=== PATIENT | female | born 1950 | race African-American/Black ===

== ENCOUNTER 2018-08-05 19:05 | Inpatient (IN) | payer MEDICARE, OTHER ==
[2018-08-05 19:56] LABS: % BASOPHILS 0.4 % (0.0-2.0); % EOSINOPHILS 1.1 % (0.0-5.0); % LYMPHOCYTES 21.2 % (20.0-50.0); % MONOCYTES 4.3 % (2.0-10.0); EOSINOPHILE ABSOLUTE 0.1 Th/cmm (0.1-0.4); HEMATOCRIT 40.3 % (41.0-60); HEMOGLOBIN 13.4 gm/dL (12-16); LYMPHOCYTE ABSOLUTE 1.4 Th/cmm (1.5-3.0); MEAN CELL VOLUME 89.9 fl (81-100); MEAN CORPUSCULAR HEMOGLOBIN 29.8 pg (27.0-31.0); MEAN CORPUSCULAR HGB CONC 33.2 pg (28.0-36.0); MEAN PLATELET VOLUME 7.5 fl; MONOCYTE ABSOLUTE 0.3 Th/cmm (0.3-1.0); NEUTROPHILE ABSOLUTE 4.8 Th/cmm (1.8-8.0); PLATELET COUNT 260 Th/cmm (150-400); RED BLOOD COUNT 4.48 Mil/cmm (3.80-5.20); RED CELL DISTRIBUTION WIDTH 13.3 % (11.5-20.0); WHITE BLOOD COUNT 6.6 Th/cmm (4.8-10.8)
[2018-08-05 20:17] LABS: ACETAMINOPHEN < 10.0 ug/mL (10.0-30.0); ALB/GLOB RATIO 1.2 (1.0-1.8); ALBUMIN 3.6 gm/dL (3.7-5.3); ALKALINE PHOSPHATASE 70 U/L (34-104); ANION GAP 12.3 (7.0-16.0); BILIRUBIN,TOTAL 0.3 mg/dL (0.3-1.0); BUN - UREA NITROGEN 18 mg/dL (7-25); CALCIUM SERUM 9.2 mg/dL (8.6-10.3); CARBON DIOXIDE 22.3 mEq/L (21.0-31.0); CHLORIDE 109 mEq/L (98-107); CHOLESTEROL 232 mg/dL (<200); CREATININE - SERUM 0.9 mg/dL (0.6-1.2); GFR AFRICAN-AMERICAN > 60.0 ml/min (>90); GFR NON AFRICAN-AMERICAN > 60.0 ml/min; GLUCOSE 119 mg/dL (70-105); HDL -HIGH DENSITY LIPOPROTEIN 41 mg/dL (23-92); POTASSIUM SERUM 3.6 mEq/L (3.5-5.1); SGOT 12 U/L (13-39); SGPT/ALT 13 U/L (7-52); SODIUM SERUM 140 mEq/L (136-145); TOTAL PROTEIN,SERUM 6.7 gm/dL (6.0-8.3); TRIGLYCERIDES 126 mg/dL (<150)
[2018-08-05 20:19] LABS: SALICYLATES (ASPIRIN) < 25.0 mg/L (30.0-100.0)
[2018-08-05] MEDS ORDERED: Magnesium Hydroxide (MOM) 30 mL UDC PO PRN (22:16)
[2018-08-05] MEDS ORDERED: Maalox 30 mL Cup PO PRN (22:16)
[2018-08-05] MEDS ORDERED: Fleet Enema 135 mL RC PRN (22:49)
[2018-08-06 00:11] VITALS: BP 150/89
[2018-08-06] MEDS: Aspirin 81mg Chewable Tab PO SCH (08:35)
[2018-08-06] MEDS: Multivitamin Tab PO SCH (08:35)
[2018-08-06] MEDS: Dextromethorphan/Quinidine 20mg/10mg Cap PO SCH (08:38)
--- NOTE | 2018-08-06 11:53 | ER Physician Documentation ---
DATE OF SERVICE: 08/05/2018 HISTORY OF PRESENT ILLNESS: This 67-year-old patient was brought into the Emergency Room to [facility] via paramedics because of the report of severe agitation and aggressive behavior for the past 2 days. This patient has a psychiatric history. There is no report of trauma, headaches, neck pain, chest pain, shortness of breath, abdominal pain, weakness or dizziness or paresthesias. No suicidal ideations reported. PAST MEDICAL HISTORY: Per nurse's notes. MEDICATIONS: Per nurse's notes. ALLERGIES: Per nurse's notes. REVIEW OF SYSTEMS: Otherwise, noncontributory. PHYSICAL EXAMINATION: GENERAL: Revealed the patient in no acute distress, alert and oriented x 3. VITAL SIGNS: Afebrile. Vital signs stable. HEENT: Negative. NECK: Supple, no meningeal signs. CARDIOVASCULAR: Regular rate and rhythm. LUNGS: Clear. ABDOMEN: Soft, nontender, normal active bowel sounds, no pulsatile mass. EXTREMITIES: No edema, clubbing or cyanosis. NEUROLOGIC: No focal signs. PSYCHIATRIC: Mental status exam revealed the patient is in no acute distress. Positive psychomotor agitation. Mood and affect labile. No suicidal ideations. MEDICAL DECISION MAKING: Lab tests were performed. EKG performed. The patient was medically cleared and thus the patient was admitted to the psychiatric unit. DIAGNOSES: Agitation, psychosis, bipolar disorder. JOB# [id number]
--- NOTE | 2018-08-06 19:09 | History & Physical ---
ADMIT DATE: 08/06/2018 CHIEF COMPLAINT: Agitation. HISTORY OF PRESENT ILLNESS: This is a 67-year-old male who is a resident of [facility], admitted to the Geropsych Unit due to 1-day history of agitation. PAST MEDICAL HISTORY: Psychosis, constipation, hypertension, dementia, hypercholesterolemia. PAST SURGICAL HISTORY: Unknown. ALLERGIES: No drug allergies. SOCIAL HISTORY: The patient is [facility] resident requiring 24-hour nursing care. REVIEW OF SYSTEMS: GENERAL: Denies any fever and chills. CARDIOVASCULAR: Denies chest pain. RESPIRATORY: Shortness of breath. GASTROINTESTINAL: Denies nausea, vomiting, abdominal pain. GENITOURINARY: Denies increased frequency or dysuria. NEUROLOGIC: No headache, seizure, or syncope. All systems reviewed and negative. PHYSICAL EXAMINATION: GENERAL: Elderly male. NEUROLOGIC: Awake, alert with confusion, no apparent distress. VITAL SIGNS: Temperature 98.5, heart rate 77, blood pressure 163/92, respiration 18, O2 95%. HEENT: Head normocephalic, atraumatic. NECK: Supple. No mass. LUNGS: Clear bilaterally. HEART: Regular rhythm. ABDOMEN: Soft, nontender. LABORATORY DATA: WBC 6.6, H and H were 13.4 and 40.3, platelet of 260. Sodium 140, potassium 3.6, chloride 109, BUN 18, creatinine 0.9. ASSESSMENT: Agitation, hypercholesterolemia, dementia, and history of constipation. PLAN: Continue patient's [facility] medications. We will adjust the patient's blood pressure medications accordingly. Fall precautions will be initiated. We will continue to monitor this patient. JOB# [id number]
--- NOTE | 2018-08-06 20:56 | Psychiatric Evaluation ---
DATE OF SERVICE: 08/06/2018 IDENTIFYING DATA: The patient is a 67-year-old -[place] woman, resident of [facility]. Information obtained by directly interviewing the patient as well as reviewing the admission papers. JUSTIFICATION FOR HOSPITALIZATION: The patient is admitted here for agitation and paranoia. CHIEF COMPLAINT: "I am okay, leave me alone." HISTORY OF PRESENT ILLNESS: This is the first psychiatric hospitalization to [facility] for this patient who is reported to have been a resident of [facility] in [place]. The patient is reported to have been getting easily agitated and has been getting frustrated and hence the patient has been referred over here for further care. Chart is reviewed. The patient is interviewed. During the interview, the patient is getting easily irritable and is stating that there is nothing wrong with her, I should leave her alone. Staff are reporting that the patient so far has been lying down in the bed and has not been willing to comply with the medication. Review of the chart indicated that the patient has been on Aricept 10 mg once a day and Depakene 500 mg twice a day and the patient is also reported to be on the Nuedexta, metoprolol, Namenda, and the patient is getting the Risperdal 1 mg twice a day for her psychosis. Even with all the medications, the patient is reported to have been getting easily upset. PAST PSYCHIATRIC HISTORY: Details are not known. MEDICAL HISTORY: Physical examination is requested to be done by Dr. Arreola. SUBSTANCE ABUSE HISTORY: None. PHYSICAL OR SEXUAL ABUSE HISTORY: Details are not known. MENTAL STATUS EXAMINATION: The patient is a 67-year-old woman looking her stated age, superficially cooperative. Eye contact is poor. Mood is noted to be irritable. Affect is constricted. Insight and judgment at this time are noted to be still impaired. Impulse control is noted to be limited. The patient has been having a difficult time to cope with the stress, continues to be paranoid. The patient is very dysphoric. IMMEDIATE TREATMENT PLAN: In view of the psychosis, the patient's Risperdal is going to be continued, so also the valproic acid and the patient is going to be closely monitored. Once stabilized, the patient is going to be discharged to the facility for followup on outpatient basis. JOB# [id number]
[2018-08-06] MEDS ORDERED: Non-Formulary Item 1 EA (Melatonin [Melatonin] 5 MG) PO SCH (21:00)
[2018-08-07] MEDS: Aspirin 81mg Chewable Tab PO SCH ×2 (09:00→09:26)
[2018-08-07] MEDS: Dextromethorphan/Quinidine 20mg/10mg Cap PO SCH ×2 (09:00→09:27)
[2018-08-07] MEDS: Multivitamin Tab PO SCH (09:29)
--- NOTE | 2018-08-07 16:43 | Internal Medicine Prog Note ---
Internal Medicine Subjective - Subjective Service Date: 08/07/18 Patient seen and examined:: with staff, chart reviewed Patient is:: awake, talking, agitated, confused Patient Complaints of:: other (Hx of Dementia.) Per staff patient has:: no adverse event, no episodes of fall, agitated Internal Medicine Objective - Results Result Diagrams: 08/05/18 19:50 08/05/18 19:50 Recent Labs: Laboratory Last Values WBC 6.6 Th/cmm (4.8-10.8) 08/05/18 19:50 RBC 4.48 Mil/cmm (3.80-5.20) 08/05/18 19:50 Hgb 13.4 gm/dL (12-16) 08/05/18 19:50 Hct 40.3 % (41.0-60) L 08/05/18 19:50 MCV 89.9 fl (81-100) 08/05/18 19:50 MCH 29.8 pg (27.0-31.0) 08/05/18 19:50 MCHC Differential 33.2 pg (28.0-36.0) 08/05/18 19:50 RDW 13.3 % (11.5-20.0) 08/05/18 19:50 Plt Count 260 Th/cmm (150-400) 08/05/18 19:50 MPV 7.5 fl 08/05/18 19:50 Neutrophils % 73.0 % (40.0-80.0) 08/05/18 19:50 Lymphocytes % 21.2 % (20.0-50.0) 08/05/18 19:50 Monocytes % 4.3 % (2.0-10.0) 08/05/18 19:50 Eosinophils % 1.1 % (0.0-5.0) 08/05/18 19:50 Basophils % 0.4 % (0.0-2.0) 08/05/18 19:50 Sodium 140 mEq/L (136-145) 08/05/18 19:50 Potassium 3.6 mEq/L (3.5-5.1) 08/05/18 19:50 Chloride 109 mEq/L (98-107) H 08/05/18 19:50 Carbon Dioxide 22.3 mEq/L (21.0-31.0) 08/05/18 19:50 Anion Gap 12.3 (7.0-16.0) 08/05/18 19:50 BUN 18 mg/dL (7-25) 08/05/18 19:50 Creatinine 0.9 mg/dL (0.6-1.2) 08/05/18 19:50 Est GFR ( Amer) > 60.0 ml/min (>90) 08/05/18 19:50 Est GFR (Non-Af Amer) > 60.0 ml/min 08/05/18 19:50 BUN/Creatinine Ratio 20.0 08/05/18 19:50 Glucose 119 mg/dL (70-105) H 08/05/18 19:50 Calcium 9.2 mg/dL (8.6-10.3) 08/05/18 19:50 Total Bilirubin 0.3 mg/dL (0.3-1.0) 08/05/18 19:50 AST 12 U/L (13-39) L 08/05/18 19:50 ALT 13 U/L (7-52) 08/05/18 19:50 Alkaline Phosphatase 70 U/L (34-104) 08/05/18 19:50 Troponin I < 0.01 ng/mL (0.01-0.05) L 08/05/18 19:50 Total Protein 6.7 gm/dL (6.0-8.3) 08/05/18 19:50 Albumin 3.6 gm/dL (3.7-5.3) L 08/05/18 19:50 Globulin 3.1 gm/dL 08/05/18 19:50 Albumin/Globulin Ratio 1.2 (1.0-1.8) 08/05/18 19:50 Triglycerides 126 mg/dL (<150) 08/05/18 19:50 Cholesterol 232 mg/dL (<200) H 08/05/18 19:50 LDL Cholesterol Direct 174 mg/dL (75-193) 08/05/18 19:50 HDL Cholesterol 41 mg/dL (23-92) 08/05/18 19:50 TSH 0.86 uIU/ml (0.34-5.60) 08/05/18 19:50 Salicylates < 25.0 mg/L (30.0-100.0) L 08/05/18 19:50 Acetaminophen < 10.0 ug/mL (10.0-30.0) L 08/05/18 19:50 Ethyl Alcohol < 10 mg/dL (0-10) 08/05/18 19:50 RPR NONREACTIVE (NONREACTIVE) 08/05/18 19:50 - Physical Exam Vitals and I&O: Vital Signs Temp 97.6 F 08/07/18 14:00 Pulse 54 08/07/18 14:00 Resp 20 08/07/18 14:00 BP 149/73 08/07/18 14:00 Pulse Ox 99 08/07/18 14:00 Intake & Output 08/06/18 08/07/18 08/07/18 18:59 06:59 18:59 Intake Total 240 Balance 240 Intake: Oral 240 Other: # Voids 2 2 # Bowel Movements 1 Active Medications: Current Medications Acetaminophen (Tylenol) 650 mg PO Q4HR PRN PRN Reason: Mild Pain / Temp above 100 Stop: 10/04/18 22:15 Al Hydrox/Mg Hydrox/Simethicone (Maalox) 30 ml PO Q4H PRN PRN Reason: GI DISTRESS Stop: 10/04/18 22:15 Aspirin (Aspirin Chewable) 81 mg PO DAILY [facility] Stop: 10/05/18 08:59 Last Admin: 08/07/18 09:00 Dose: 81 mg Atorvastatin Calcium (Lipitor) 40 mg PO DAILY [facility] Stop: 10/05/18 08:59 Last Admin: 08/07/18 09:00 Dose: 40 mg Bisacodyl (Dulcolax 10 Mg Supp) 10 mg RC DAILY PRN PRN Reason: Constipation Stop: 10/04/18 22:31 Dextromethorphan/Quinidine (Nuedexta 20mg-10mg) 1 cap PO DAILY [facility] Stop: 10/05/18 08:59 Last Admin: 08/07/18 09:00 Dose: 1 cap Docusate Sodium (Colace) 250 mg PO DAILY [facility] Stop: 10/05/18 08:59 Last Admin: 08/07/18 09:27 Dose: 250 mg Donepezil HCl (Aricept) 10 mg PO HS [facility] Stop: 10/05/18 20:59 Last Admin: 08/06/18 20:50 Dose: Not Given Lorazepam (Ativan) 0.5 mg PO Q4H PRN; Protocol PRN Reason: Anxiety Stop: 10/04/18 22:15 Last Admin: 08/06/18 16:36 Dose: 0.5 mg Magnesium Hydroxide (Milk Of Magnesia) 30 ml PO HS PRN PRN Reason: Constipation Memantine (Namenda) 10 mg PO BID [facility] Stop: 10/05/18 08:59 Last Admin: 08/07/18 09:35 Dose: 10 mg Metoprolol Tartrate (Lopressor) 50 mg PO BID [facility]; Protocol Stop: 10/05/18 08:59 Last Admin: 08/07/18 09:00 Dose: 50 mg Multivitamins/Vitamin C (Theragran) 1 tab PO DAILY [facility] Stop: 10/05/18 08:59 Last Admin: 08/07/18 09:29 Dose: Not Given Nitroglycerin (Nitrostat) 0.4 mg SL Q5MIN PRN PRN Reason: Chest Pain Psyllium Hydrophilic Mucilloid (Metamucil) 1 pkt PO BID [facility] Stop: 10/05/18 08:59 Last Admin: 08/07/18 09:00 Dose: Not Given Risperidone (Risperdal) 1 mg PO Q12HR [facility]; Protocol Stop: 10/05/18 08:59 Last Admin: 08/07/18 09:00 Dose: 1 mg Sodium Phosphate (Fleet Enema) 135 ml RC DAILY PRN PRN Reason: Constipation Stop: 10/04/18 22:48 Valproate Sodium (Depakene) 500 mg PO BID [facility] Stop: 10/05/18 08:59 Last Admin: 08/07/18 09:00 Dose: Not Given Zolpidem Tartrate (Ambien) 5 mg PO HS PRN PRN Reason: Insomnia Stop: 10/04/18 22:15 General: lethargic HEENT: NC/AT Neck: Supple, No JVD Lungs: CTAB Cardiovascular: RRR, Normal S1 Abdomen: soft, non-tender Extremities: clear Neurological: no change, alert, disorganized Internal Medicine Assmt/Plan - Assessment Assessment: Agitated Psychosis Dementia Htn Hx of Constipation - Plan Plan: Continue present meds Monitor blood pressure closely Monitor Diet Psych consult with Psych management Continue current present treatment plan Nutritional Asmnt/Malnutr-PDOC - Dietary Evaluation Malnutrition Findings (Please click <Entered> for more info): see orders
--- NOTE | 2018-08-07 22:55 | Consultation ---
DATE OF CONSULTATION: 08/07/2018 REFERRING PHYSICIAN: Murali Landry M.D. TYPE OF CONSULTATION: Psychology. HISTORY OF PRESENT ILLNESS: The patient is a 67-year-old -[place] female. The patient is a resident of [facility]. The patient is known to this editorial writer from a previous hospitalization. The following is by record review and by the patient's self-report. The patient is being admitted due to increased agitation and paranoid ideation. Upon interview, the patient seemed guarded, but was able to answer yes or no to the clinical questions. The staff at the patient's facility report that she had been getting easily agitated and frustrated with yelling outbursts and profanity. The patient states that she does not feel there is anything wrong with her and does not need to take medication. The staff indicates the patient has been unwilling to take the medication and comply with treatment. The patient denied any suicidal ideation, plan, or intention at the time of this clinical interview. PAST MEDICAL HISTORY: Please see history and physical by Dr. Arreola. 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 The patient is under the care of a psychiatrist at her placement. The patient also has a diagnosis of personality change due to medical condition. SUBSTANCE ABUSE HISTORY: The patient did not answer these questions. PSYCHOSOCIAL HISTORY: The patient did not answer any of the questions. She did not answer about occupational or educational history. The patient nodded yes that she is a Sikh. The patient did not answer questions about history of physical or sexual abuse or current legal problems. The patient did not answer questions about family members or others involved in her care. MENTAL STATUS EXAMINATION: The patient appears to be her stated age. The patient's attitude is guarded and suspicious. Eye contact is poor. Speech is intermittently soft and then loud. Mood is fluctuating from sullen and depressed to irritable. Affect is constricted. Thought process shows to be confused. The patient may be responding to internal stimuli. The patient denied any visual or auditory hallucinations. There may possibly be a delusion present. This needs further evaluation. The patient's behavior has been noncompliant with care and treatment with verbal outbursts. Impulse control is inadequate. Concentration is poor. The patient did not participate in the memory assessment. Sensorium is alert and oriented to self only. The patient did not participate in interpretation of proverbs. Insight is poor. Judgment is impaired. TREATMENT PLAN: The patient has been seen by Dr. Landry for psychiatric evaluation and for the management of the patient's psychotropic medications. We will provide reality orientation, differentiation, and integration. With respect to the patient's possible paranoid ideation, we will provide coping strategies for phase of life issues with respect to the patient's dysphoric mood. We will provide motivational enhancement for the patient to become compliant and stay compliant with all aspects of her care and treatment. We will encourage the patient to demonstrate emotional and self-regulation and to verbalize her concerns versus acting out. Thank you, Dr. Landry, for this consult and the opportunity to participate in this patient's care. JOB# [id number] DAO
--- NOTE | 2018-08-07 23:44 | Progress Notes ---
DATE: 08/07/2018 SUBJECTIVE: Staff was spoken to. The patient is interviewed. Mood is noted to be irritable. Affect is constricted. Insight and judgment is still impaired. Impulse control is limited. The patient with a great difficulty. He has agreed to comply with the medication. The patient continues to be paranoid and has been having acute mood swings. ASSESSMENT: The patient is still impulsive and psychotic and demented. PLAN: To continue the patient with the supportive therapy and followup. JOB# [id number]
[2018-08-08] MEDS: Dextromethorphan/Quinidine 20mg/10mg Cap PO SCH (09:01)
[2018-08-08] MEDS: Aspirin 81mg Chewable Tab PO SCH (09:02)
[2018-08-08] MEDS: Multivitamin Tab PO SCH (09:04)
--- NOTE | 2018-08-08 14:29 | Progress Notes ---
DATE: 08/08/2018 SUBJECTIVE: Staff was spoken to. The patient is interviewed. Mood is noted to be irritable. Affect is constricted. The patient is very paranoid and is not too keen on taking the medications with great difficulty. The patient has taken a dose of the Risperdal and Depakote yesterday and the patient at this time has been oscillating between taking or not to take. ASSESSMENT: The patient is still psychotic and impulsive. PLAN: To continue the patient with the current medications and follow. The patient is not ready to be discharged to a lower level of care yet. JOB# [id number]
--- NOTE | 2018-08-08 17:00 | Progress Notes ---
DATE: 08/08/2018 SUBJECTIVE: The patient was seen in her room. The patient was loud, refused to answer questions, appears to be guarded, easily gets irritated, otherwise the patient is in no acute distress. OBJECTIVE: VITAL SIGNS: Temperature 97.8, heart rate 69, blood pressure /80, respirations of 19, 96% on room air. HEENT: Head is atraumatic and normocephalic. Eyes: Bilateral conjunctivae are clear. Bilateral pupils are equally round and reactive. NECK: Supple. No JVD. CARDIOVASCULAR: S1 and S2 without murmur. PULMONARY: Clear to auscultation. GASTROINTESTINAL: Soft and nontender without guarding. Positive bowel sounds. MUSCULOSKELETAL: No clubbing. No cyanosis noted. ASSESSMENT: 1. Dementia. 2. Hyperlipidemia. 3. Osteoarthritis. 4. Hypertension. PLAN: We will keep the patient inpatient [facility]. We will follow up with a psychiatrist to monitor the patient's condition and behavior. Treatment plans were discussed with the patient's nurse. Treatment plans were discussed with Dr. Arreola. JOB# [id number]
--- NOTE | 2018-08-09 20:22 | Progress Notes ---
DATE: 08/09/2018 PSYCHIATRIC PROGRESS NOTE SUBJECTIVE: Staff was spoken to. The patient is interviewed. Mood is noted to be irritable. Affect is constricted. Insight and judgment are noted to be still impaired. Impulse control is noted to be poor. Coping skills are also noted to be poor. The patient has been having difficult time to cope with the stress. No side effects to the medications are noted. The patient is reluctant to comply with the medication and the patient has to be referred to the medical unit because of blood pressure has been very high. No side effects. The patient has been so far compliant with the medication on the medical unit. ASSESSMENT: The patient is still acutely psychotic and not able to contract for safety. PLAN: To continue the patient with the supportive therapy, encouraged the patient to comply with the treatment. JOB# [id number]
== END 2018-08-09 06:26 | DRG 885 ==
LOC: ER 19:05 → GERO2 20:35
PROVIDERS: ADMIT Psychiatry & Neurology Psychiatry; ATTEND Psychiatry & Neurology Psychiatry
DX: F29 Unspecified psychosis not due to a substance or known physiological condition (principal); I10 Essential (primary) hypertension; E78.00 Pure hypercholesterolemia, unspecified; F03.90 Unspecified dementia, unspecified severity, without behavioral disturbance, psychotic disturbance, mood disturbance, and anxiety; K59.00 Constipation, unspecified; E78.5 Hyperlipidemia, unspecified; M19.90 Unspecified osteoarthritis, unspecified site
CPT/HCPCS: 36415-UA; 80053-TC; 80061-TC; 80320-TC; 80329-TC; 83036-90; 84443-TC; 84484-TC; 85025-TC; 86592-TC; 93005; J0360; Z7610

== ENCOUNTER 2019-01-13 21:47 | Inpatient (IN) | payer MEDICARE, OTHER ==
[2019-01-13 22:20] LABS: % BASOPHILS 0.5 % (0.0-2.0); % LYMPHOCYTES 27.6 % (20.0-50.0); % MONOCYTES 7.2 % (2.0-10.0); % NEUTROPHILS 62.7 % (40.0-80.0); EOSINOPHILE ABSOLUTE 0.1 Th/cmm (0.1-0.4); HEMATOCRIT 40.3 % (41.0-60); HEMOGLOBIN 13.4 gm/dL (12-16); LYMPHOCYTE ABSOLUTE 1.8 Th/cmm (1.5-3.0); MEAN CORPUSCULAR HEMOGLOBIN 30.9 pg (27.0-31.0); MEAN CORPUSCULAR HGB CONC 33.2 pg (28.0-36.0); MONOCYTE ABSOLUTE 0.5 Th/cmm (0.3-1.0); NEUTROPHILE ABSOLUTE 4.1 Th/cmm (1.8-8.0); PLATELET COUNT 309 Th/cmm (150-400); RED BLOOD COUNT 4.33 Mil/cmm (3.80-5.20); RED CELL DISTRIBUTION WIDTH 12.2 % (11.5-20.0); WHITE BLOOD COUNT 6.5 Th/cmm (4.8-10.8)
[2019-01-13 22:33] LABS: ACETAMINOPHEN < 10.0 ug/mL (10.0-30.0); ALBUMIN 3.3 gm/dL (3.7-5.3); ALKALINE PHOSPHATASE 62 U/L (34-104); ANION GAP 10.1 (7.0-16.0); BILIRUBIN,TOTAL 0.2 mg/dL (0.3-1.0); BUN - UREA NITROGEN 14 mg/dL (7-25); CARBON DIOXIDE 24.2 mEq/L (21.0-31.0); CHLORIDE 108 mEq/L (98-107); CREATININE - SERUM 0.8 mg/dL (0.6-1.2); GFR AFRICAN-AMERICAN > 60.0 ml/min (>90); GFR NON AFRICAN-AMERICAN > 60.0 ml/min; GLUCOSE 122 mg/dL (70-105); POTASSIUM SERUM 3.3 mEq/L (3.5-5.1); SGOT 10 U/L (13-39); SGPT/ALT 10 U/L (7-52); SODIUM SERUM 139 mEq/L (136-145); TOTAL PROTEIN,SERUM 6.7 gm/dL (6.0-8.3)
[2019-01-13] MEDS ORDERED: Potassium Chloride 20 mEq ER Tab PO ONE ×2 (22:39→22:40)
--- NOTE | 2019-01-13 23:28 | ED Physician Chart ---
ED Chief Complaint/HPI - Patient Information Date Seen:: 01/13/19 Time Seen:: 23:24 Chief Complaint:: agitation History of Present Illness:: 68 yr old female with hx of htn cva high cholesterol with agitation from [facility] pt awake answering question denies any pain Allergies:: Allergies Allergy/AdvReac Type Severity Reaction Status Date / Time No Known Allergies Allergy Verified 08/05/18 19:25 Vitals:: Vital Signs - 8 hr 01/13/19 01/13/19 21:53 23:10 Temp 97.6 F 97.6 F HR 72 65 RR 18 17 BP 172/92 163/101 O2 Sat % 98 97 ED Review of Systems - Review of Systems General/Constitutional: No fever, No chills, No weight loss, No weakness, No diaphoresis, No edema, No loss of appetite Skin: No skin lesions, No rash, No bruising Head: No headache, No light-headedness Eyes: No loss of vision, No pain, No diplopia ENT: No earache, No nasal drainage, No sore throat, No tinnitus Neck: No neck pain, No swelling, No thyromegaly, No stiffness, No mass noted Cardio Vascular: No chest pain, No palpitations, No PND, No orthopnea, No edema Pulmonary: No SOB, No cough, No sputum, No wheezing GI: No nausea, No vomiting, No diarrhea, No pain, No melena, No hematochezia, No constipation, No hematemesis G/U: No dysuria, No frequency, No hematuria Musculoskeletal: No bone or joint pain, No back pain, No muscle pain Endocrine: No polyuria, No polydipsia Psychiatric: No prior psych history, No depression, No anxiety, No suicidal ideation Hematopoietic: No bruising, No lymphadenopathy Allergic/Immuno: No urticaria, No angioedema Neurological: No syncope, No focal symptoms, No weakness, No paresthesia, No headache, No seizure, No dizziness, No confusion, No vertigo ED Past Medical History - Past Medical History Past Medical History: HTN, CVA/TIA Family Medical History - Family Member Mother History Unknown: Yes ED Physical Exam - Physical Examination General/Constitutional: Awake, Well-developed, well-nourished, Alert, No distress, GCS 15, Non-toxic appearing, Ambulatory Head: Atraumatic Eyes: Lids, conjuctiva normal, PERRL, EOMI Skin: Nl inspection, No rash, No skin lesions, No ecchymosis, Well hydrated, No lymphadenopathy ENMT: External ears, nose nl, Nasal exam nl, Lips, teeth, gums nl Neck: Nontender, Full ROM w/o pain, No JVD, No nuchal rigidity, No bruit, No mass, No stridor Respiratory: Nl effort/Exclusion, Clear to Auscultation, No Wheeze/Rhonchi/Rales Cardio Vascular: RRR, No murmur, gallop, rubs, NL S1 S2 GI: No tenderness/rebounding/guarding, No organomegaly, No hernia, Normal BS's, Nondistended, No mass/bruits, No McBurney tenderness : No CVA tenderness Extremities: No edema Other Extremities comments:: foot ankle deformities mariajose rt ankle Neuro/Psych: Alert/oriented, DTR's symmetric, Judgement/insight normal, Mood normal Misc: Normal back, No paraspinal tenderness ED Labs/Radiology/EKG Results - Lab Results Results: Laboratory Tests 01/13/19 01/13/19 01/13/19 22:14 22:14 22:14 WBC 6.5 RBC 4.33 Hgb 13.4 Hct 40.3 L MCV 93.0 MCH 30.9 MCHC Differential 33.2 RDW 12.2 Plt Count 309 MPV 7.4 Neutrophils % 62.7 Lymphocytes % 27.6 Monocytes % 7.2 Eosinophils % 2.0 Basophils % 0.5 Sodium 139 Potassium 3.3 L Chloride 108 H Carbon Dioxide 24.2 Anion Gap 10.1 BUN 14 Creatinine 0.8 Est GFR ( Amer) > 60.0 Est GFR (Non-Af Amer) > 60.0 BUN/Creatinine Ratio 17.5 Glucose 122 H Calcium 9.0 Total Bilirubin 0.2 L AST 10 L ALT 10 Alkaline Phosphatase 62 Troponin I Total Protein 6.7 Albumin 3.3 L Globulin 3.4 Albumin/Globulin Ratio 1.0 TSH 2.14 Salicylates < 25.0 L Acetaminophen < 10.0 L Ethyl Alcohol < 10 01/13/19 22:14 WBC RBC Hgb Hct MCV MCH MCHC Differential RDW Plt Count MPV Neutrophils % Lymphocytes % Monocytes % Eosinophils % Basophils % Sodium Potassium Chloride Carbon Dioxide Anion Gap BUN Creatinine Est GFR ( Amer) Est GFR (Non-Af Amer) BUN/Creatinine Ratio Glucose Calcium Total Bilirubin AST ALT Alkaline Phosphatase Troponin I < 0.01 L Total Protein Albumin Globulin Albumin/Globulin Ratio TSH Salicylates Acetaminophen Ethyl Alcohol ED Assessment - Assessment General Assessment: agitation geropsych evaluation ED Septic Shock - . Is Septic Shock (SBP<90, OR Lactate>4 mmol\L) present?: No - <6hrs of presentation: Vital Signs: Vital Signs - 8 hr 01/13/19 01/13/19 21:53 23:10 Temp 97.6 F 97.6 F HR 72 65 RR 18 17 BP 172/92 163/101 O2 Sat % 98 97 ED Reassessment (Disposition) - Reassessment Reassessment:: geropsych evaluatiom agitation - Diagnosis Diagnosis:: agitation geropsych evaluation - Patient Disposition Discharge/Transfer:: Acute Care w/in this hosp Admitted to:: [facility] Condition at Disposition:: Stable
[2019-01-14 01:18] VITALS: BP 139/76
[2019-01-14] MEDS ORDERED: Fleet Enema 135 mL RC PRN (01:25)
[2019-01-14] MEDS ORDERED: Magnesium Hydroxide (MOM) 30 mL UDC PO PRN (01:25)
[2019-01-14 06:05] LABS: CHOLESTEROL 186 mg/dL (<200); HDL -HIGH DENSITY LIPOPROTEIN 34 mg/dL (23-92); TRIGLYCERIDES 138 mg/dL (<150)
[2019-01-14] MEDS: Multivitamin Tab PO SCH (08:25)
[2019-01-14] MEDS: Aspirin 81mg Chewable Tab PO SCH (08:25)
--- NOTE | 2019-01-14 11:06 | History & Physical ---
ADMIT DATE: 01/14/[address] Arreola. CHIEF COMPLAINT: Agitation. HISTORY OF PRESENT ILLNESS: This is a 68-year-old female who is a jail resident, admitted to the Geropsych Unit due to a 1-day history of agitation. PAST MEDICAL HISTORY: Hypertension, CVA, and hypercholesterolemia. FAMILY HISTORY: Noncontributory. SOCIAL HISTORY: The patient is a jail resident. SURGICAL HISTORY: Unknown. ALLERGIES: No drug allergies. HOME MEDICATIONS: See medication list. REVIEW OF SYSTEMS: GENERAL: Denies any fevers and chills. CARDIOVASCULAR: Denies chest pain. RESPIRATORY: Denies shortness of breath. GASTROINTESTINAL: Denies nausea, vomiting, or abdominal pain. GENITOURINARY: Denies increased frequency or dysuria. NEUROLOGIC: Denies headache, seizure, or syncope. All systems reviewed and negative. PHYSICAL EXAMINATION: GENERAL: The patient is a well-developed, well-nourished, no apparent distress. VITAL SIGNS: Temperature 98.1, heart rate 72, blood pressure 139/76, respirations 20, O2 98%. HEENT: Head; normocephalic, atraumatic. NECK: Supple. No mass. LUNGS: Clear bilaterally. ABDOMEN: Soft, nontender. LABORATORY DATA: WBC 6.5, H and H 13.4 and 40.3, platelets of 309. Sodium 139, potassium 3.3, chloride 108, BUN 14, creatinine 0.8, and calcium 9.0. ASSESSMENT: 1. History of cerebrovascular accident and agitation. 2. Hypercholesterolemia. PLAN: The patient will be admitted to the Geropsych Unit. We will continue the patient's home medications and fall precautions will be initiated. We will continue to follow this patient. JOB# [id number]
--- NOTE | 2019-01-14 20:28 | Psychiatric Evaluation ---
DATE OF SERVICE: 01/14/2019 INITIAL EVALUATION AND MENTAL STATUS EXAMINATION PATIENT'S AGE: 68. SEX: Female. PHYSICIAN: Dr. Faria. CHIEF COMPLAINT: "They got me here. I don't know why." HISTORY OF PRESENT ILLNESS: The patient was admitted to the hospital from [facility] because of increased agitation and increased irritability and aggression and the patient also has been verbally abusive. The patient also has been unable to follow directions and has been confused and restless. The patient told me that she is "a 55-year-old." She also told me that she lives in "[place]." She was getting more confused during my conversation with her and she has been restless and has been actively responding and paranoid. She also was getting more agitated. She is also a poor historian and she was not able to give me accurate information because of her confusion. She does have a history of schizophrenia according to the charts. PAST PSYCHIATRIC HISTORY: The patient has history of schizophrenia. The patient has been confused and has been restless. PAST MEDICAL HISTORY: The patient has history of essential hypertension. progressive bulbar palsy, hemiplegia, and hemiparesis following cerebral infarction. Hyperlipidemia. SOCIAL HISTORY: The patient lives in [facility]. No known alcohol or drug use. The patient said that she has 2 sons, but she was not able to give more information about that. ALLERGIES: No known allergies. MENTAL STATUS EXAMINATION: The patient appears her stated age. Anxious. Restless. Irritable mood. Thought processes are circumstantial and tangential with flight of ideas. The patient is cooperative. The patient did not answer question regarding hallucinations or delusions, but actively responding. The patient denies any thoughts of suicide or homicide, but she admitted that she was aggressive in the half-way. The patient is alert and oriented to the situation, but not to place or person or date. Impaired immediate and recent memory, but intact remote memory and she did remember her date. Poor insight and she does not know why she is in the hospital. Poor judgment and she was verbally aggressive with the staff. She seems to be of low average intelligence based on her verbal ability ASSESSMENT: PRIMARY DIAGNOSIS: Schizophrenic disorder with acute exacerbation. SECONDARY DIAGNOSIS: Dementia, moderate to severe, with psychotic features and behavioral disturbances. TREATMENT PLAN: We will monitor the patient's behavior and condition closely. We will start individual as well as milieu psychotherapy. Also, we will adjust psychotropic medications. ESTIMATED LENGTH OF STAY: 5-7 days PATIENT STRENGTHS AND WEAKNESSES: The patient's strength is that she has good support in [facility]. Weaknesses are her psychosis and her hallucinations and poor impulse control. AFTER DISCHARGE PLANS: Outpatient treatment and followup will continue as an outpatient. CRITERIA FOR DISCHARGE: Better impulse control and to stabilize psychotropic medications. [facility]# [id number]
[2019-01-14] MEDS ORDERED: Non-Formulary Item 1 EA (Melatonin [Melatonin] 5 MG) PO SCH (21:00)
[2019-01-15 07:10] LABS: A1C 5.9 % (4.8-5.6)
[2019-01-15] MEDS: Dextromethorphan/Quinidine 20mg/10mg Cap PO SCH (09:00)
[2019-01-15] MEDS: Aspirin 81mg Chewable Tab PO SCH (09:27)
[2019-01-15] MEDS: Multivitamin Tab PO SCH (09:27)
--- NOTE | 2019-01-15 13:34 | Internal Medicine Prog Note ---
Internal Medicine Subjective - Subjective Service Date: 01/15/19 Patient seen and examined:: with staff Patient is:: awake, verbal, agitated Patient Complaints of:: other (History of CVA.) Per staff patient has:: no adverse event, no episodes of fall Internal Medicine Objective - Results Result Diagrams: 01/13/19 22:14 01/13/19 22:14 Recent Labs: Laboratory Last Values WBC 6.5 Th/cmm (4.8-10.8) 01/13/19 22:14 RBC 4.33 Mil/cmm (3.80-5.20) 01/13/19 22:14 Hgb 13.4 gm/dL (12-16) 01/13/19 22:14 Hct 40.3 % (41.0-60) L 01/13/19 22:14 MCV 93.0 fl (81-100) 01/13/19 22:14 MCH 30.9 pg (27.0-31.0) 01/13/19 22:14 MCHC Differential 33.2 pg (28.0-36.0) 01/13/19 22:14 RDW 12.2 % (11.5-20.0) 01/13/19 22:14 Plt Count 309 Th/cmm (150-400) 01/13/19 22:14 MPV 7.4 fl 01/13/19 22:14 Neutrophils % 62.7 % (40.0-80.0) 01/13/19 22:14 Lymphocytes % 27.6 % (20.0-50.0) 01/13/19 22:14 Monocytes % 7.2 % (2.0-10.0) 01/13/19 22:14 Eosinophils % 2.0 % (0.0-5.0) 01/13/19 22:14 Basophils % 0.5 % (0.0-2.0) 01/13/19 22:14 Sodium 139 mEq/L (136-145) 01/13/19 22:14 Potassium 3.3 mEq/L (3.5-5.1) L 01/13/19 22:14 Chloride 108 mEq/L (98-107) H 01/13/19 22:14 Carbon Dioxide 24.2 mEq/L (21.0-31.0) 01/13/19 22:14 Anion Gap 10.1 (7.0-16.0) 01/13/19 22:14 BUN 14 mg/dL (7-25) 01/13/19 22:14 Creatinine 0.8 mg/dL (0.6-1.2) 01/13/19 22:14 Est GFR ( Amer) > 60.0 ml/min (>90) 01/13/19 22:14 Est GFR (Non-Af Amer) > 60.0 ml/min 01/13/19 22:14 BUN/Creatinine Ratio 17.5 01/13/19 22:14 Glucose 122 mg/dL (70-105) H 01/13/19 22:14 Calcium 9.0 mg/dL (8.6-10.3) 01/13/19 22:14 Total Bilirubin 0.2 mg/dL (0.3-1.0) L 01/13/19 22:14 AST 10 U/L (13-39) L 01/13/19 22:14 ALT 10 U/L (7-52) 01/13/19 22:14 Alkaline Phosphatase 62 U/L (34-104) 01/13/19 22:14 Troponin I < 0.01 ng/mL (0.01-0.05) L 01/13/19 22:14 Total Protein 6.7 gm/dL (6.0-8.3) 01/13/19 22:14 Albumin 3.3 gm/dL (3.7-5.3) L 01/13/19 22:14 Globulin 3.4 gm/dL 01/13/19 22:14 Albumin/Globulin Ratio 1.0 (1.0-1.8) 01/13/19 22:14 Triglycerides 138 mg/dL (<150) 01/14/19 00:00 Cholesterol 186 mg/dL (<200) 01/14/19 00:00 LDL Cholesterol Direct 129 mg/dL (75-193) 01/14/19 00:00 HDL Cholesterol 34 mg/dL (23-92) 01/14/19 00:00 TSH 2.14 uIU/ml (0.34-5.60) 01/13/19 22:14 Salicylates < 25.0 mg/L (30.0-100.0) L 01/13/19 22:14 Acetaminophen < 10.0 ug/mL (10.0-30.0) L 01/13/19 22:14 Ethyl Alcohol < 10 mg/dL (0-10) 01/13/19 22:14 - Physical Exam Vitals and I&O: Vital Signs Temp 98 F 01/15/19 06:52 Pulse 81 01/15/19 09:28 Resp 20 01/15/19 06:52 BP 139/71 01/15/19 09:28 Pulse Ox 99 01/14/19 20:00 Intake & Output 01/14/19 01/15/19 01/15/19 18:59 06:59 18:59 Intake Total 1250 Balance 1250 Intake: Oral 1250 Other: # Bowel Movements 1 Stool Characteristics Soft Soft Soft Active Medications: Current Medications Acetaminophen (Tylenol) 650 mg PO Q6H PRN PRN Reason: Moderate pain (4-6/10) Stop: 03/15/19 01:29 Aspirin (Aspirin Chewable) 81 mg PO DAILY [facility] Stop: 03/15/19 08:59 Last Admin: 01/15/19 09:27 Dose: 81 mg Atorvastatin Calcium (Lipitor) 40 mg PO HS [facility] Stop: 03/15/19 20:59 Last Admin: 01/14/19 21:39 Dose: Not Given Bisacodyl (Dulcolax 10 Mg Supp) 10 mg RC DAILY PRN PRN Reason: Constipation Stop: 03/15/19 01:24 Dextromethorphan/Quinidine (Nuedexta 20mg-10mg) 1 cap PO DAILY [facility] Stop: 03/15/19 08:59 Divalproex Sodium (Depakote Er) 750 mg PO Q12H [facility]; Protocol Stop: 03/15/19 01:29 Last Admin: 01/15/19 01:45 Dose: Not Given Docusate Sodium (Colace) 250 mg PO BID [facility] Stop: 03/15/19 08:59 Last Admin: 01/15/19 09:27 Dose: 250 mg Donepezil HCl (Aricept) 10 mg PO HS [facility] Stop: 03/15/19 20:59 Last Admin: 01/14/19 21:39 Dose: Not Given Hydralazine HCl (Apresoline) 50 mg PO TID [facility] Stop: 03/15/19 08:59 Last Admin: 01/15/19 09:28 Dose: 50 mg Lorazepam (Ativan) 0.5 mg PO Q4HR PRN; Protocol PRN Reason: Anxiety Stop: 02/13/19 01:17 Magnesium Hydroxide (Milk Of Magnesia) 30 ml PO DAILY PRN PRN Reason: Constipation Stop: 03/15/19 01:24 Memantine (Namenda) 10 mg PO BID [facility] Stop: 03/15/19 08:59 Last Admin: 01/15/19 09:27 Dose: 10 mg Metoprolol Tartrate (Lopressor) 50 mg PO BID [facility] Stop: 03/15/19 08:59 Last Admin: 01/15/19 09:27 Dose: 50 mg Multivitamins/Vitamin C (Theragran) 1 tab PO DAILY [facility] Stop: 03/15/19 08:59 Last Admin: 01/15/19 09:27 Dose: 1 tab Nitroglycerin (Nitrostat) 0.4 mg SL Q5MIN PRN PRN Reason: Chest Pain Stop: 03/15/19 02:14 Risperidone (Risperdal) 1 mg PO Q12HR [facility]; Protocol Stop: 03/15/19 08:59 Last Admin: 01/15/19 09:27 Dose: 1 mg Sodium Phosphate (Fleet Enema) 135 ml RC DAILY PRN PRN Reason: IF MOM INEFFECTIVE Stop: 03/15/19 01:24 Zolpidem Tartrate (Ambien) 5 mg PO HS PRN PRN Reason: Insomnia Stop: 03/15/19 01:17 Physical Exam: Patient is very agitated. General: other (Irritated.) HEENT: NC/AT Neck: Supple Lungs: CTAB Cardiovascular: RRR, Normal S1 Abdomen: soft, non-tender Extremities: clear Neurological: no change Internal Medicine Assmt/Plan - Assessment Assessment: Agitated. Htn. History of CVA. Hypercholesterolemia. - Plan Plan: Continuation of care. Monitor Labs. Continue present meds as directed. Monitor Diet/Nutritional support. Psych management per Psych. Pain Management. Physical therapy. Occupational therapy. Safety precaution. Supportive care. Fall precaution, frequent nursing rounds, and as needed restraints to prevent fall. Continue collaborating with consulting specialists, case management and nursing team. Will Monitor patient and continue present care management. Nutritional Asmnt/Malnutr-PDOC - Dietary Evaluation Malnutrition Findings (Please click <Entered> for more info): see orders.
--- NOTE | 2019-01-16 07:52 | Progress Notes ---
DATE: 01/15/2019 SUBJECTIVE: Chart was reviewed and the patient interviewed. Also discussed the patient's condition with the staff and reviewed records and labs. The patient is still actively hallucinating and the patient is smiling for no reason. The patient also still has periods of agitation and irritability. The patient also is still resisting care and refusing to take medications and easily agitated. She also is restless and she is having mood swings. Otherwise, the patient seems to be slightly less aggressive. ASSESSMENT: The patient is still psychotic and agitated, but redirectable. TREATMENT PLAN: Monitor the patient's behavior and condition closely. We will also try to admit the patient to comply with taking her medications. Also, work on behavioral modification. JOB# [id number]
[2019-01-16] MEDS: Dextromethorphan/Quinidine 20mg/10mg Cap PO SCH (08:36)
[2019-01-16] MEDS: Aspirin 81mg Chewable Tab PO SCH (08:36)
[2019-01-16] MEDS: Multivitamin Tab PO SCH (12:56)
--- NOTE | 2019-01-16 16:11 | General Progress Note ---
Objective - Results Result Diagrams: 01/13/19 22:14 01/13/19 22:14 Recent Labs: Laboratory Last Values WBC 6.5 Th/cmm (4.8-10.8) 01/13/19 22:14 RBC 4.33 Mil/cmm (3.80-5.20) 01/13/19 22:14 Hgb 13.4 gm/dL (12-16) 01/13/19 22:14 Hct 40.3 % (41.0-60) L 01/13/19 22:14 MCV 93.0 fl (81-100) 01/13/19 22:14 MCH 30.9 pg (27.0-31.0) 01/13/19 22:14 MCHC Differential 33.2 pg (28.0-36.0) 01/13/19 22:14 RDW 12.2 % (11.5-20.0) 01/13/19 22:14 Plt Count 309 Th/cmm (150-400) 01/13/19 22:14 MPV 7.4 fl 01/13/19 22:14 Neutrophils % 62.7 % (40.0-80.0) 01/13/19 22:14 Lymphocytes % 27.6 % (20.0-50.0) 01/13/19 22:14 Monocytes % 7.2 % (2.0-10.0) 01/13/19 22:14 Eosinophils % 2.0 % (0.0-5.0) 01/13/19 22:14 Basophils % 0.5 % (0.0-2.0) 01/13/19 22:14 Sodium 139 mEq/L (136-145) 01/13/19 22:14 Potassium 3.3 mEq/L (3.5-5.1) L 01/13/19 22:14 Chloride 108 mEq/L (98-107) H 01/13/19 22:14 Carbon Dioxide 24.2 mEq/L (21.0-31.0) 01/13/19 22:14 Anion Gap 10.1 (7.0-16.0) 01/13/19 22:14 BUN 14 mg/dL (7-25) 01/13/19 22:14 Creatinine 0.8 mg/dL (0.6-1.2) 01/13/19 22:14 Est GFR ( Amer) > 60.0 ml/min (>90) 01/13/19 22:14 Est GFR (Non-Af Amer) > 60.0 ml/min 01/13/19 22:14 BUN/Creatinine Ratio 17.5 01/13/19 22:14 Glucose 122 mg/dL (70-105) H 01/13/19 22:14 Calcium 9.0 mg/dL (8.6-10.3) 01/13/19 22:14 Total Bilirubin 0.2 mg/dL (0.3-1.0) L 01/13/19 22:14 AST 10 U/L (13-39) L 01/13/19 22:14 ALT 10 U/L (7-52) 01/13/19 22:14 Alkaline Phosphatase 62 U/L (34-104) 01/13/19 22:14 Troponin I < 0.01 ng/mL (0.01-0.05) L 01/13/19 22:14 Total Protein 6.7 gm/dL (6.0-8.3) 01/13/19 22:14 Albumin 3.3 gm/dL (3.7-5.3) L 01/13/19 22:14 Globulin 3.4 gm/dL 01/13/19 22:14 Albumin/Globulin Ratio 1.0 (1.0-1.8) 01/13/19 22:14 Triglycerides 138 mg/dL (<150) 01/14/19 00:00 Cholesterol 186 mg/dL (<200) 01/14/19 00:00 LDL Cholesterol Direct 129 mg/dL (75-193) 01/14/19 00:00 HDL Cholesterol 34 mg/dL (23-92) 01/14/19 00:00 TSH 2.14 uIU/ml (0.34-5.60) 01/13/19 22:14 Salicylates < 25.0 mg/L (30.0-100.0) L 01/13/19 22:14 Acetaminophen < 10.0 ug/mL (10.0-30.0) L 01/13/19 22:14 Ethyl Alcohol < 10 mg/dL (0-10) 01/13/19 22:14 - Physical Exam Vitals and I&O: Vital Signs Temp 97.6 F 01/16/19 14:00 Pulse 75 01/16/19 14:00 Resp 20 01/16/19 14:00 BP 145/66 01/16/19 14:00 Pulse Ox 96 01/16/19 14:00 Intake & Output 01/15/19 01/16/19 01/16/19 18:59 06:59 18:59 Intake Total 1250 Balance 1250 Intake: Oral 1250 Other: Stool Characteristics Soft Soft Soft Active Medications: Current Medications Acetaminophen (Tylenol) 650 mg PO Q6H PRN PRN Reason: Moderate pain (4-6/10) Stop: 03/15/19 01:29 Aspirin (Aspirin Chewable) 81 mg PO DAILY [facility] Stop: 03/15/19 08:59 Last Admin: 01/16/19 08:36 Dose: 81 mg Atorvastatin Calcium (Lipitor) 40 mg PO HS [facility] Stop: 03/15/19 20:59 Last Admin: 01/15/19 20:27 Dose: Not Given Bisacodyl (Dulcolax 10 Mg Supp) 10 mg RC DAILY PRN PRN Reason: Constipation Stop: 03/15/19 01:24 Dextromethorphan/Quinidine (Nuedexta 20mg-10mg) 1 cap PO DAILY [facility] Stop: 03/15/19 16:59 Last Admin: 01/16/19 08:36 Dose: 1 cap Divalproex Sodium (Depakote Er) 750 mg PO Q12H [facility]; Protocol Stop: 03/15/19 01:29 Last Admin: 01/16/19 02:30 Dose: Not Given Docusate Sodium (Colace) 250 mg PO BID [facility] Stop: 03/15/19 08:59 Last Admin: 01/16/19 08:36 Dose: 250 mg Donepezil HCl (Aricept) 10 mg PO HS [facility] Stop: 03/15/19 20:59 Last Admin: 01/15/19 20:28 Dose: Not Given Hydralazine HCl (Apresoline) 50 mg PO TID [facility] Stop: 03/15/19 08:59 Last Admin: 01/16/19 13:05 Dose: 50 mg Lorazepam (Ativan) 0.5 mg PO Q4HR PRN; Protocol PRN Reason: Anxiety Stop: 02/13/19 01:17 Last Admin: 01/16/19 06:32 Dose: 0.5 mg Magnesium Hydroxide (Milk Of Magnesia) 30 ml PO DAILY PRN PRN Reason: Constipation Stop: 03/15/19 01:24 Memantine (Namenda) 10 mg PO BID [facility] Stop: 03/15/19 08:59 Last Admin: 01/16/19 08:37 Dose: Not Given Metoprolol Tartrate (Lopressor) 50 mg PO BID [facility] Stop: 03/17/19 07:59 Last Admin: 01/16/19 09:15 Dose: Not Given Multivitamins/Vitamin C (Theragran) 1 tab PO DAILY [facility] Stop: 03/15/19 08:59 Last Admin: 01/16/19 12:56 Dose: 1 tab Nitroglycerin (Nitrostat) 0.4 mg SL Q5MIN PRN PRN Reason: Chest Pain Stop: 03/15/19 02:14 Risperidone (Risperdal) 1 mg PO Q12HR [facility]; Protocol Stop: 03/15/19 08:59 Last Admin: 01/16/19 08:37 Dose: 1 mg Sodium Phosphate (Fleet Enema) 135 ml RC DAILY PRN PRN Reason: IF MOM INEFFECTIVE Stop: 03/15/19 01:24 Zolpidem Tartrate (Ambien) 5 mg PO HS PRN PRN Reason: Insomnia Stop: 03/15/19 01:17 Physical Exam: Patient is very agitated. Assessment/Plan - Assessment Assessment: Agitated. Htn. History of CVA. Hypercholesterolemia. - Plan Plan: Continuation of care. Monitor Labs. Continue present meds as directed. Monitor Diet/Nutritional support. Psych management per Psych. Pain Management. Physical therapy. Occupational therapy. Safety precaution. Supportive care. Fall precaution, frequent nursing rounds, and as needed restraints to prevent fall. Continue collaborating with consulting specialists, case management and nursing team. Will Monitor patient and continue present care management.
--- NOTE | 2019-01-16 18:29 | Progress Notes ---
DATE: 01/16/2019 SUBJECTIVE: Chart was reviewed and the patient interviewed. Also discussed the patient's condition with the staff and reviewed records and labs. The patient still has episodes of yelling and screaming for no apparent reason. She also is still laughing inappropriately and is still actively responding. Also, during interview, the patient was asking for "Manuel." When asked about who is Manuel, the patient said that her brother. The patient also is still resisting care and at times she is getting easily agitated. The patient also is still disheveled. On the other hand, the patient did take her medications with no side effects. ASSESSMENT: The patient is still suspicious and is still paranoid and needs close observation. TREATMENT PLAN: Continue to monitor behavior and condition closely. Also, continue adjusting psychotropic medications and work on behavioral modification. JOB# [id number]
--- NOTE | 2019-01-16 19:47 | Internal Medicine Prog Note ---
Internal Medicine Subjective - Subjective Service Date: 01/16/19 Patient seen and examined:: with staff Patient is:: awake, verbal, agitated Patient Complaints of:: other (History of CVA.) Per staff patient has:: no adverse event, no episodes of fall Internal Medicine Objective - Results Result Diagrams: 01/13/19 22:14 01/13/19 22:14 Recent Labs: Laboratory Last Values WBC 6.5 Th/cmm (4.8-10.8) 01/13/19 22:14 RBC 4.33 Mil/cmm (3.80-5.20) 01/13/19 22:14 Hgb 13.4 gm/dL (12-16) 01/13/19 22:14 Hct 40.3 % (41.0-60) L 01/13/19 22:14 MCV 93.0 fl (81-100) 01/13/19 22:14 MCH 30.9 pg (27.0-31.0) 01/13/19 22:14 MCHC Differential 33.2 pg (28.0-36.0) 01/13/19 22:14 RDW 12.2 % (11.5-20.0) 01/13/19 22:14 Plt Count 309 Th/cmm (150-400) 01/13/19 22:14 MPV 7.4 fl 01/13/19 22:14 Neutrophils % 62.7 % (40.0-80.0) 01/13/19 22:14 Lymphocytes % 27.6 % (20.0-50.0) 01/13/19 22:14 Monocytes % 7.2 % (2.0-10.0) 01/13/19 22:14 Eosinophils % 2.0 % (0.0-5.0) 01/13/19 22:14 Basophils % 0.5 % (0.0-2.0) 01/13/19 22:14 Sodium 139 mEq/L (136-145) 01/13/19 22:14 Potassium 3.3 mEq/L (3.5-5.1) L 01/13/19 22:14 Chloride 108 mEq/L (98-107) H 01/13/19 22:14 Carbon Dioxide 24.2 mEq/L (21.0-31.0) 01/13/19 22:14 Anion Gap 10.1 (7.0-16.0) 01/13/19 22:14 BUN 14 mg/dL (7-25) 01/13/19 22:14 Creatinine 0.8 mg/dL (0.6-1.2) 01/13/19 22:14 Est GFR ( Amer) > 60.0 ml/min (>90) 01/13/19 22:14 Est GFR (Non-Af Amer) > 60.0 ml/min 01/13/19 22:14 BUN/Creatinine Ratio 17.5 01/13/19 22:14 Glucose 122 mg/dL (70-105) H 01/13/19 22:14 Calcium 9.0 mg/dL (8.6-10.3) 01/13/19 22:14 Total Bilirubin 0.2 mg/dL (0.3-1.0) L 01/13/19 22:14 AST 10 U/L (13-39) L 01/13/19 22:14 ALT 10 U/L (7-52) 01/13/19 22:14 Alkaline Phosphatase 62 U/L (34-104) 01/13/19 22:14 Troponin I < 0.01 ng/mL (0.01-0.05) L 01/13/19 22:14 Total Protein 6.7 gm/dL (6.0-8.3) 01/13/19 22:14 Albumin 3.3 gm/dL (3.7-5.3) L 01/13/19 22:14 Globulin 3.4 gm/dL 01/13/19 22:14 Albumin/Globulin Ratio 1.0 (1.0-1.8) 01/13/19 22:14 Triglycerides 138 mg/dL (<150) 01/14/19 00:00 Cholesterol 186 mg/dL (<200) 01/14/19 00:00 LDL Cholesterol Direct 129 mg/dL (75-193) 01/14/19 00:00 HDL Cholesterol 34 mg/dL (23-92) 01/14/19 00:00 TSH 2.14 uIU/ml (0.34-5.60) 01/13/19 22:14 Salicylates < 25.0 mg/L (30.0-100.0) L 01/13/19 22:14 Acetaminophen < 10.0 ug/mL (10.0-30.0) L 01/13/19 22:14 Ethyl Alcohol < 10 mg/dL (0-10) 01/13/19 22:14 RPR NONREACTIVE (NONREACTIVE) 01/13/19 22:14 - Physical Exam Vitals and I&O: Vital Signs Temp 97.6 F 01/16/19 14:00 Pulse 75 01/16/19 17:31 Resp 20 01/16/19 14:00 BP 145/66 01/16/19 17:31 Pulse Ox 96 01/16/19 14:00 Intake & Output 01/16/19 01/16/19 01/17/19 06:59 18:59 06:59 Intake Total 800 Balance 800 Intake: Oral 800 Other: # Voids 3 # Bowel Movements 1 Stool Characteristics Soft Soft Active Medications: Current Medications Acetaminophen (Tylenol) 650 mg PO Q6H PRN PRN Reason: Moderate pain (4-6/10) Stop: 03/15/19 01:29 Aspirin (Aspirin Chewable) 81 mg PO DAILY [facility] Stop: 03/15/19 08:59 Last Admin: 01/16/19 08:36 Dose: 81 mg Atorvastatin Calcium (Lipitor) 40 mg PO HS [facility] Stop: 03/15/19 20:59 Last Admin: 01/15/19 20:27 Dose: Not Given Bisacodyl (Dulcolax 10 Mg Supp) 10 mg RC DAILY PRN PRN Reason: Constipation Stop: 03/15/19 01:24 Dextromethorphan/Quinidine (Nuedexta 20mg-10mg) 1 cap PO DAILY [facility] Stop: 03/15/19 16:59 Last Admin: 01/16/19 08:36 Dose: 1 cap Divalproex Sodium (Depakote Er) 750 mg PO Q12H [facility]; Protocol Stop: 03/15/19 01:29 Last Admin: 01/16/19 17:32 Dose: Not Given Docusate Sodium (Colace) 250 mg PO BID [facility] Stop: 03/15/19 08:59 Last Admin: 01/16/19 17:31 Dose: Not Given Donepezil HCl (Aricept) 10 mg PO HS [facility] Stop: 03/15/19 20:59 Last Admin: 01/15/19 20:28 Dose: Not Given Hydralazine HCl (Apresoline) 50 mg PO TID [facility] Stop: 03/15/19 08:59 Last Admin: 01/16/19 13:05 Dose: 50 mg Lorazepam (Ativan) 0.5 mg PO Q4HR PRN; Protocol PRN Reason: Anxiety Stop: 02/13/19 01:17 Last Admin: 01/16/19 06:32 Dose: 0.5 mg Magnesium Hydroxide (Milk Of Magnesia) 30 ml PO DAILY PRN PRN Reason: Constipation Stop: 03/15/19 01:24 Memantine (Namenda) 10 mg PO BID [facility] Stop: 03/15/19 08:59 Last Admin: 01/16/19 17:31 Dose: Not Given Metoprolol Tartrate (Lopressor) 50 mg PO BID [facility] Stop: 03/17/19 07:59 Last Admin: 01/16/19 17:31 Dose: Not Given Multivitamins/Vitamin C (Theragran) 1 tab PO DAILY [facility] Stop: 03/15/19 08:59 Last Admin: 01/16/19 12:56 Dose: 1 tab Nitroglycerin (Nitrostat) 0.4 mg SL Q5MIN PRN PRN Reason: Chest Pain Stop: 03/15/19 02:14 Risperidone (Risperdal) 1 mg PO Q12HR VILLA; Protocol Stop: 03/15/19 08:59 Last Admin: 01/16/19 08:37 Dose: 1 mg Sodium Phosphate (Fleet Enema) 135 ml RC DAILY PRN PRN Reason: IF MOM INEFFECTIVE Stop: 03/15/19 01:24 Zolpidem Tartrate (Ambien) 5 mg PO HS PRN PRN Reason: Insomnia Stop: 03/15/19 01:17 Physical Exam: Patient has mood swings, irritable. General: other (Aggressive and agitated.) HEENT: NC/AT Neck: Supple Lungs: CTAB Cardiovascular: RRR, Normal S1 Abdomen: soft, non-tender Extremities: clear Neurological: no change Internal Medicine Assmt/Plan - Assessment Assessment: Agitated. Htn. History of CVA. Hypercholesterolemia. - Plan Plan: Continuation of care. Monitor Labs. Continue present meds as directed. Monitor Diet/Nutritional support. Psych management per Psych. Pain Management. Physical therapy. Occupational therapy. Safety precaution. Supportive care. Fall precaution, frequent nursing rounds, and as needed restraints to prevent fall. Continue collaborating with consulting specialists, case management and nursing team. Will Monitor patient and continue present care management. Nutritional Asmnt/Malnutr-PDOC - Dietary Evaluation Malnutrition Findings (Please click <Entered> for more info): see orders.
--- NOTE | 2019-01-17 08:41 | Progress Notes ---
DATE: SUBJECTIVE: Chart was reviewed and the patient interviewed. Also discussed the patient's condition with the staff and reviewed records and labs. The patient still has episodes of yelling for no reason. The patient also is still delusional and paranoid and continues to ask for "Manuel" who is her brother. She also is still angry and is still having severe mood swings, but at the same time staff reports that she did take her psychotropic medications. No side effects of medications. ASSESSMENT: The patient is still agitated and psychotic. TREATMENT PLAN: Continue to monitor her behavior and her condition closely. Also, continue adjusting psychotropic medications and work on behavioral modification. JOB# [id number]
[2019-01-17] MEDS: Dextromethorphan/Quinidine 20mg/10mg Cap PO SCH (09:16)
[2019-01-17] MEDS: Aspirin 81mg Chewable Tab PO SCH (09:16)
[2019-01-17] MEDS: Multivitamin Tab PO SCH (09:17)
--- NOTE | 2019-01-17 11:27 | Internal Medicine Prog Note ---
Internal Medicine Subjective - Subjective Service Date: 01/17/19 Patient seen and examined:: with staff Patient is:: awake, verbal, agitated Patient Complaints of:: other (History of CVA.) Per staff patient has:: no adverse event, no episodes of fall Internal Medicine Objective - Results Result Diagrams: 01/13/19 22:14 01/13/19 22:14 Recent Labs: Laboratory Last Values WBC 6.5 Th/cmm (4.8-10.8) 01/13/19 22:14 RBC 4.33 Mil/cmm (3.80-5.20) 01/13/19 22:14 Hgb 13.4 gm/dL (12-16) 01/13/19 22:14 Hct 40.3 % (41.0-60) L 01/13/19 22:14 MCV 93.0 fl (81-100) 01/13/19 22:14 MCH 30.9 pg (27.0-31.0) 01/13/19 22:14 MCHC Differential 33.2 pg (28.0-36.0) 01/13/19 22:14 RDW 12.2 % (11.5-20.0) 01/13/19 22:14 Plt Count 309 Th/cmm (150-400) 01/13/19 22:14 MPV 7.4 fl 01/13/19 22:14 Neutrophils % 62.7 % (40.0-80.0) 01/13/19 22:14 Lymphocytes % 27.6 % (20.0-50.0) 01/13/19 22:14 Monocytes % 7.2 % (2.0-10.0) 01/13/19 22:14 Eosinophils % 2.0 % (0.0-5.0) 01/13/19 22:14 Basophils % 0.5 % (0.0-2.0) 01/13/19 22:14 Sodium 139 mEq/L (136-145) 01/13/19 22:14 Potassium 3.3 mEq/L (3.5-5.1) L 01/13/19 22:14 Chloride 108 mEq/L (98-107) H 01/13/19 22:14 Carbon Dioxide 24.2 mEq/L (21.0-31.0) 01/13/19 22:14 Anion Gap 10.1 (7.0-16.0) 01/13/19 22:14 BUN 14 mg/dL (7-25) 01/13/19 22:14 Creatinine 0.8 mg/dL (0.6-1.2) 01/13/19 22:14 Est GFR ( Amer) > 60.0 ml/min (>90) 01/13/19 22:14 Est GFR (Non-Af Amer) > 60.0 ml/min 01/13/19 22:14 BUN/Creatinine Ratio 17.5 01/13/19 22:14 Glucose 122 mg/dL (70-105) H 01/13/19 22:14 Calcium 9.0 mg/dL (8.6-10.3) 01/13/19 22:14 Total Bilirubin 0.2 mg/dL (0.3-1.0) L 01/13/19 22:14 AST 10 U/L (13-39) L 01/13/19 22:14 ALT 10 U/L (7-52) 01/13/19 22:14 Alkaline Phosphatase 62 U/L (34-104) 01/13/19 22:14 Troponin I < 0.01 ng/mL (0.01-0.05) L 01/13/19 22:14 Total Protein 6.7 gm/dL (6.0-8.3) 01/13/19 22:14 Albumin 3.3 gm/dL (3.7-5.3) L 01/13/19 22:14 Globulin 3.4 gm/dL 01/13/19 22:14 Albumin/Globulin Ratio 1.0 (1.0-1.8) 01/13/19 22:14 Triglycerides 138 mg/dL (<150) 01/14/19 00:00 Cholesterol 186 mg/dL (<200) 01/14/19 00:00 LDL Cholesterol Direct 129 mg/dL (75-193) 01/14/19 00:00 HDL Cholesterol 34 mg/dL (23-92) 01/14/19 00:00 TSH 2.14 uIU/ml (0.34-5.60) 01/13/19 22:14 Salicylates < 25.0 mg/L (30.0-100.0) L 01/13/19 22:14 Acetaminophen < 10.0 ug/mL (10.0-30.0) L 01/13/19 22:14 Ethyl Alcohol < 10 mg/dL (0-10) 01/13/19 22:14 RPR NONREACTIVE (NONREACTIVE) 01/13/19 22:14 - Physical Exam Vitals and I&O: Vital Signs Temp 97.9 F 01/17/19 04:54 Pulse 80 01/17/19 09:25 Resp 18 01/17/19 08:00 BP 175/82 01/17/19 09:25 Pulse Ox 96 01/17/19 04:54 Intake & Output 01/16/19 01/17/19 01/17/19 18:59 06:59 18:59 Intake Total 800 480 Balance 800 480 Intake: Oral 800 480 Other: # Voids 3 2 # Bowel Movements 1 Stool Characteristics Soft Soft Soft Active Medications: Current Medications Acetaminophen (Tylenol) 650 mg PO Q6H PRN PRN Reason: Moderate pain (4-6/10) Stop: 03/15/19 01:29 Aspirin (Aspirin Chewable) 81 mg PO DAILY [facility] Stop: 03/15/19 08:59 Last Admin: 01/17/19 09:16 Dose: 81 mg Atorvastatin Calcium (Lipitor) 40 mg PO HS [facility] Stop: 03/15/19 20:59 Last Admin: 01/16/19 21:20 Dose: Not Given Bisacodyl (Dulcolax 10 Mg Supp) 10 mg RC DAILY PRN PRN Reason: Constipation Stop: 03/15/19 01:24 Dextromethorphan/Quinidine (Nuedexta 20mg-10mg) 1 cap PO DAILY [facility] Stop: 03/15/19 16:59 Last Admin: 01/17/19 09:16 Dose: 1 cap Divalproex Sodium (Depakote Er) 750 mg PO Q12HR [facility]; Protocol Stop: 03/18/19 08:59 Docusate Sodium (Colace) 250 mg PO BID [facility] Stop: 03/15/19 08:59 Last Admin: 01/17/19 09:16 Dose: 250 mg Donepezil HCl (Aricept) 10 mg PO HS [facility] Stop: 03/15/19 20:59 Last Admin: 01/16/19 21:19 Dose: Not Given Hydralazine HCl (Apresoline) 50 mg PO TID [facility] Stop: 03/15/19 08:59 Last Admin: 01/17/19 09:25 Dose: 50 mg Lorazepam (Ativan) 0.5 mg PO Q4HR PRN; Protocol PRN Reason: Anxiety Stop: 02/13/19 01:17 Last Admin: 01/16/19 06:32 Dose: 0.5 mg Magnesium Hydroxide (Milk Of Magnesia) 30 ml PO DAILY PRN PRN Reason: Constipation Stop: 03/15/19 01:24 Memantine (Namenda) 10 mg PO BID [facility] Stop: 03/15/19 08:59 Last Admin: 01/17/19 09:17 Dose: 10 mg Metoprolol Tartrate (Lopressor) 50 mg PO BID [facility] Stop: 03/17/19 07:59 Last Admin: 01/17/19 09:24 Dose: 50 mg Multivitamins/Vitamin C (Theragran) 1 tab PO DAILY [facility] Stop: 03/15/19 08:59 Last Admin: 01/17/19 09:17 Dose: 1 tab Nitroglycerin (Nitrostat) 0.4 mg SL Q5MIN PRN PRN Reason: Chest Pain Stop: 03/15/19 02:14 Risperidone (Risperdal) 1 mg PO Q12HR [facility]; Protocol Stop: 03/15/19 08:59 Last Admin: 01/17/19 09:17 Dose: 1 mg Sodium Phosphate (Fleet Enema) 135 ml RC DAILY PRN PRN Reason: IF MOM INEFFECTIVE Stop: 03/15/19 01:24 Zolpidem Tartrate (Ambien) 5 mg PO HS PRN PRN Reason: Insomnia Stop: 03/15/19 01:17 Physical Exam: Patient is still aggressive. General: other (Aggressive and agitated.) HEENT: NC/AT Neck: Supple Lungs: CTAB Cardiovascular: RRR, Normal S1 Abdomen: soft, non-tender Extremities: clear Neurological: no change Internal Medicine Assmt/Plan - Assessment Assessment: Htn. Agitated. Hx of CVA. Hypercholesterolemia. - Plan Plan: Continuation of care. Monitor Labs. Continue present meds as directed. Monitor vitals, continue B/P meds.. Monitor Diet/Nutritional support. Psych management per psych. Pain Management. Physical therapy. Occupational therapy. Safety precaution. Supportive care. Fall precaution, frequent nursing rounds, and as needed restraints to prevent fall. Will Monitor patient and continue current treatment plan as ordered. Nutritional Asmnt/Malnutr-PDOC - Dietary Evaluation Malnutrition Findings (Please click <Entered> for more info): see orders.
[2019-01-18] MEDS: Dextromethorphan/Quinidine 20mg/10mg Cap PO SCH ×2 (08:25→09:05)
[2019-01-18] MEDS: Aspirin 81mg Chewable Tab PO SCH ×2 (08:25→09:04)
[2019-01-18] MEDS: Multivitamin Tab PO SCH ×2 (08:26→09:04)
[2019-01-18] MEDS: risperiDONE 1 mg/mL 30 mL Bottle PO SCH ×3 (08:27→21:00)
--- NOTE | 2019-01-18 11:23 | Internal Medicine Prog Note ---
Internal Medicine Subjective - Subjective Service Date: 01/18/19 Patient seen and examined:: with staff Patient is:: awake, verbal, agitated Patient Complaints of:: other (History of CVA.) Per staff patient has:: no adverse event, no episodes of fall Internal Medicine Objective - Results Result Diagrams: 01/13/19 22:14 01/13/19 22:14 Recent Labs: Laboratory Last Values WBC 6.5 Th/cmm (4.8-10.8) 01/13/19 22:14 RBC 4.33 Mil/cmm (3.80-5.20) 01/13/19 22:14 Hgb 13.4 gm/dL (12-16) 01/13/19 22:14 Hct 40.3 % (41.0-60) L 01/13/19 22:14 MCV 93.0 fl (81-100) 01/13/19 22:14 MCH 30.9 pg (27.0-31.0) 01/13/19 22:14 MCHC Differential 33.2 pg (28.0-36.0) 01/13/19 22:14 RDW 12.2 % (11.5-20.0) 01/13/19 22:14 Plt Count 309 Th/cmm (150-400) 01/13/19 22:14 MPV 7.4 fl 01/13/19 22:14 Neutrophils % 62.7 % (40.0-80.0) 01/13/19 22:14 Lymphocytes % 27.6 % (20.0-50.0) 01/13/19 22:14 Monocytes % 7.2 % (2.0-10.0) 01/13/19 22:14 Eosinophils % 2.0 % (0.0-5.0) 01/13/19 22:14 Basophils % 0.5 % (0.0-2.0) 01/13/19 22:14 Sodium 139 mEq/L (136-145) 01/13/19 22:14 Potassium 3.3 mEq/L (3.5-5.1) L 01/13/19 22:14 Chloride 108 mEq/L (98-107) H 01/13/19 22:14 Carbon Dioxide 24.2 mEq/L (21.0-31.0) 01/13/19 22:14 Anion Gap 10.1 (7.0-16.0) 01/13/19 22:14 BUN 14 mg/dL (7-25) 01/13/19 22:14 Creatinine 0.8 mg/dL (0.6-1.2) 01/13/19 22:14 Est GFR ( Amer) > 60.0 ml/min (>90) 01/13/19 22:14 Est GFR (Non-Af Amer) > 60.0 ml/min 01/13/19 22:14 BUN/Creatinine Ratio 17.5 01/13/19 22:14 Glucose 122 mg/dL (70-105) H 01/13/19 22:14 Calcium 9.0 mg/dL (8.6-10.3) 01/13/19 22:14 Total Bilirubin 0.2 mg/dL (0.3-1.0) L 01/13/19 22:14 AST 10 U/L (13-39) L 01/13/19 22:14 ALT 10 U/L (7-52) 01/13/19 22:14 Alkaline Phosphatase 62 U/L (34-104) 01/13/19 22:14 Troponin I < 0.01 ng/mL (0.01-0.05) L 01/13/19 22:14 Total Protein 6.7 gm/dL (6.0-8.3) 01/13/19 22:14 Albumin 3.3 gm/dL (3.7-5.3) L 01/13/19 22:14 Globulin 3.4 gm/dL 01/13/19 22:14 Albumin/Globulin Ratio 1.0 (1.0-1.8) 01/13/19 22:14 Triglycerides 138 mg/dL (<150) 01/14/19 00:00 Cholesterol 186 mg/dL (<200) 01/14/19 00:00 LDL Cholesterol Direct 129 mg/dL (75-193) 01/14/19 00:00 HDL Cholesterol 34 mg/dL (23-92) 01/14/19 00:00 TSH 2.14 uIU/ml (0.34-5.60) 01/13/19 22:14 Salicylates < 25.0 mg/L (30.0-100.0) L 01/13/19 22:14 Acetaminophen < 10.0 ug/mL (10.0-30.0) L 01/13/19 22:14 Ethyl Alcohol < 10 mg/dL (0-10) 01/13/19 22:14 RPR NONREACTIVE (NONREACTIVE) 01/13/19 22:14 - Physical Exam Vitals and I&O: Vital Signs Temp 97.7 F 01/18/19 04:58 Pulse 68 01/18/19 04:58 Resp 19 01/18/19 04:58 BP 152/74 01/18/19 04:58 Pulse Ox 92 01/18/19 04:58 Intake & Output 01/17/19 01/18/19 01/18/19 18:59 06:59 18:59 Intake Total 480 Balance 480 Intake: Oral 480 Other: # Voids 2 Stool Characteristics Soft Soft Active Medications: Current Medications Acetaminophen (Tylenol) 650 mg PO Q6H PRN PRN Reason: Moderate pain (4-6/10) Stop: 03/15/19 01:29 Aspirin (Aspirin Chewable) 81 mg PO DAILY [facility] Stop: 03/15/19 08:59 Last Admin: 01/18/19 09:04 Dose: Not Given Atorvastatin Calcium (Lipitor) 40 mg PO HS [facility] Stop: 03/15/19 20:59 Last Admin: 01/17/19 21:37 Dose: Not Given Bisacodyl (Dulcolax 10 Mg Supp) 10 mg RC DAILY PRN PRN Reason: Constipation Stop: 03/15/19 01:24 Dextromethorphan/Quinidine (Nuedexta 20mg-10mg) 1 cap PO DAILY [facility] Stop: 03/15/19 16:59 Last Admin: 01/18/19 09:05 Dose: Not Given Docusate Sodium (Colace) 250 mg PO BID [facility] Stop: 03/15/19 08:59 Last Admin: 01/18/19 09:04 Dose: Not Given Donepezil HCl (Aricept) 10 mg PO HS [facility] Stop: 03/15/19 20:59 Last Admin: 01/17/19 21:37 Dose: Not Given Hydralazine HCl (Apresoline) 50 mg PO TID [facility] Stop: 03/15/19 08:59 Last Admin: 01/18/19 09:04 Dose: Not Given Lorazepam (Ativan) 0.5 mg PO Q4HR PRN; Protocol PRN Reason: Anxiety Stop: 02/13/19 01:17 Last Admin: 01/16/19 06:32 Dose: 0.5 mg Magnesium Hydroxide (Milk Of Magnesia) 30 ml PO DAILY PRN PRN Reason: Constipation Stop: 03/15/19 01:24 Memantine (Namenda) 10 mg PO BID [facility] Stop: 03/15/19 08:59 Last Admin: 01/18/19 09:04 Dose: Not Given Metoprolol Tartrate (Lopressor) 50 mg PO BID [facility] Stop: 03/17/19 07:59 Last Admin: 01/18/19 09:04 Dose: Not Given Multivitamins/Vitamin C (Theragran) 1 tab PO DAILY [facility] Stop: 03/15/19 08:59 Last Admin: 01/18/19 09:04 Dose: Not Given Nitroglycerin (Nitrostat) 0.4 mg SL Q5MIN PRN PRN Reason: Chest Pain Stop: 03/15/19 02:14 Risperidone (Risperdal) 1 mg PO Q12H [facility]; Protocol Stop: 03/19/19 08:59 Last Admin: 01/18/19 09:04 Dose: Not Given Sodium Phosphate (Fleet Enema) 135 ml RC DAILY PRN PRN Reason: IF MOM INEFFECTIVE Stop: 03/15/19 01:24 Valproate Sodium (Depakene) 750 mg PO Q12H [facility]; Protocol Stop: 03/19/19 07:29 Last Admin: 01/18/19 09:05 Dose: Not Given Zolpidem Tartrate (Ambien) 5 mg PO HS PRN PRN Reason: Insomnia Stop: 03/15/19 01:17 Physical Exam: Patient is still in aggressive mood and irritable. General: other (Aggressive and agitated.) HEENT: NC/AT Neck: Supple Lungs: CTAB Cardiovascular: RRR, Normal S1 Abdomen: soft, non-tender Extremities: clear Neurological: no change Internal Medicine Assmt/Plan - Assessment Assessment: Htn. Agitated. Hx of CVA. Hypercholesterolemia. - Plan Plan: Continuation of care. Monitor Labs. Continue present meds as directed. Monitor vitals, continue B/P meds.. Monitor Diet/Nutritional support. Psych management per psych. Pain Management. Physical therapy. Occupational therapy. Safety precaution. Supportive care. Fall precaution, frequent nursing rounds, and as needed restraints to prevent fall. Will Monitor patient and continue present care management. Nutritional Asmnt/Malnutr-PDOC - Dietary Evaluation Malnutrition Findings (Please click <Entered> for more info): see orders.
--- NOTE | 2019-01-19 03:07 | Progress Notes ---
DATE: 01/18/2019 SUBJECTIVE: Chart reviewed and the patient interviewed. Also discussed the patient's condition with the staff and reviewed records and labs. The patient is still depressed and still withdrawn. The patient also is still laughing to herself and she is still easily agitated and in angry mood. The patient also is still suspicious and is still paranoid. She also is still talking to self. Otherwise, the patient is easier to redirect her. ASSESSMENT: The patient is still psychotic. TREATMENT PLAN: The patient is refusing to take her medications. We will work on her compliance with taking her medications. Also, we will work on her irritability and anger as well as on her discharge plans. [facility]# [id number]
[2019-01-19] MEDS: Aspirin 81mg Chewable Tab PO SCH (09:22)
[2019-01-19] MEDS: Dextromethorphan/Quinidine 20mg/10mg Cap PO SCH (09:22)
[2019-01-19] MEDS: Multivitamin Tab PO SCH (09:23)
[2019-01-19] MEDS: risperiDONE 1 mg/mL 30 mL Bottle PO SCH ×3 (09:23→21:21)
--- NOTE | 2019-01-19 16:06 | Internal Medicine Prog Note ---
Internal Medicine Subjective - Subjective Service Date: 01/19/19 Patient is:: awake, verbal, agitated Patient Complaints of:: other (History of CVA.) Per staff patient has:: no adverse event, no episodes of fall Internal Medicine Objective - Results Result Diagrams: 01/13/19 22:14 01/13/19 22:14 Recent Labs: Laboratory Last Values WBC 6.5 Th/cmm (4.8-10.8) 01/13/19 22:14 RBC 4.33 Mil/cmm (3.80-5.20) 01/13/19 22:14 Hgb 13.4 gm/dL (12-16) 01/13/19 22:14 Hct 40.3 % (41.0-60) L 01/13/19 22:14 MCV 93.0 fl (81-100) 01/13/19 22:14 MCH 30.9 pg (27.0-31.0) 01/13/19 22:14 MCHC Differential 33.2 pg (28.0-36.0) 01/13/19 22:14 RDW 12.2 % (11.5-20.0) 01/13/19 22:14 Plt Count 309 Th/cmm (150-400) 01/13/19 22:14 MPV 7.4 fl 01/13/19 22:14 Neutrophils % 62.7 % (40.0-80.0) 01/13/19 22:14 Lymphocytes % 27.6 % (20.0-50.0) 01/13/19 22:14 Monocytes % 7.2 % (2.0-10.0) 01/13/19 22:14 Eosinophils % 2.0 % (0.0-5.0) 01/13/19 22:14 Basophils % 0.5 % (0.0-2.0) 01/13/19 22:14 Sodium 139 mEq/L (136-145) 01/13/19 22:14 Potassium 3.3 mEq/L (3.5-5.1) L 01/13/19 22:14 Chloride 108 mEq/L (98-107) H 01/13/19 22:14 Carbon Dioxide 24.2 mEq/L (21.0-31.0) 01/13/19 22:14 Anion Gap 10.1 (7.0-16.0) 01/13/19 22:14 BUN 14 mg/dL (7-25) 01/13/19 22:14 Creatinine 0.8 mg/dL (0.6-1.2) 01/13/19 22:14 Est GFR ( Amer) > 60.0 ml/min (>90) 01/13/19 22:14 Est GFR (Non-Af Amer) > 60.0 ml/min 01/13/19 22:14 BUN/Creatinine Ratio 17.5 01/13/19 22:14 Glucose 122 mg/dL (70-105) H 01/13/19 22:14 Calcium 9.0 mg/dL (8.6-10.3) 01/13/19 22:14 Total Bilirubin 0.2 mg/dL (0.3-1.0) L 01/13/19 22:14 AST 10 U/L (13-39) L 01/13/19 22:14 ALT 10 U/L (7-52) 01/13/19 22:14 Alkaline Phosphatase 62 U/L (34-104) 01/13/19 22:14 Troponin I < 0.01 ng/mL (0.01-0.05) L 01/13/19 22:14 Total Protein 6.7 gm/dL (6.0-8.3) 01/13/19 22:14 Albumin 3.3 gm/dL (3.7-5.3) L 01/13/19 22:14 Globulin 3.4 gm/dL 01/13/19 22:14 Albumin/Globulin Ratio 1.0 (1.0-1.8) 01/13/19 22:14 Triglycerides 138 mg/dL (<150) 01/14/19 00:00 Cholesterol 186 mg/dL (<200) 01/14/19 00:00 LDL Cholesterol Direct 129 mg/dL (75-193) 01/14/19 00:00 HDL Cholesterol 34 mg/dL (23-92) 01/14/19 00:00 TSH 2.14 uIU/ml (0.34-5.60) 01/13/19 22:14 Salicylates < 25.0 mg/L (30.0-100.0) L 01/13/19 22:14 Acetaminophen < 10.0 ug/mL (10.0-30.0) L 01/13/19 22:14 Ethyl Alcohol < 10 mg/dL (0-10) 01/13/19 22:14 RPR NONREACTIVE (NONREACTIVE) 01/13/19 22:14 - Physical Exam Vitals and I&O: Vital Signs Temp 98.5 F 01/18/19 19:53 Pulse 74 01/19/19 09:23 Resp 18 01/18/19 19:53 BP 149/76 01/19/19 09:23 Pulse Ox 99 01/18/19 19:53 Intake & Output 01/18/19 01/19/19 01/19/19 18:59 06:59 18:59 Intake Total 240 Balance 240 Intake: Oral 240 Other: # Voids 2 Active Medications: Current Medications Acetaminophen (Tylenol) 650 mg PO Q6H PRN PRN Reason: Moderate pain (4-6/10) Stop: 03/15/19 01:29 Aspirin (Aspirin Chewable) 81 mg PO DAILY [facility] Stop: 03/15/19 08:59 Last Admin: 01/19/19 09:22 Dose: 81 mg Atorvastatin Calcium (Lipitor) 40 mg PO HS [facility] Stop: 03/15/19 20:59 Last Admin: 01/18/19 21:00 Dose: 40 mg Bisacodyl (Dulcolax 10 Mg Supp) 10 mg RC DAILY PRN PRN Reason: Constipation Stop: 03/15/19 01:24 Dextromethorphan/Quinidine (Nuedexta 20mg-10mg) 1 cap PO DAILY [facility] Stop: 03/15/19 16:59 Last Admin: 01/19/19 09:22 Dose: 1 cap Docusate Sodium (Colace) 250 mg PO BID [facility] Stop: 03/15/19 08:59 Last Admin: 01/19/19 09:22 Dose: 250 mg Donepezil HCl (Aricept) 10 mg PO HS [facility] Stop: 03/15/19 20:59 Last Admin: 01/18/19 21:00 Dose: 10 mg Hydralazine HCl (Apresoline) 50 mg PO TID [facility] Stop: 03/15/19 08:59 Last Admin: 01/19/19 14:07 Dose: Not Given Lorazepam (Ativan) 0.5 mg PO Q4HR PRN; Protocol PRN Reason: Anxiety Stop: 02/13/19 01:17 Last Admin: 01/18/19 21:00 Dose: 0.5 mg Magnesium Hydroxide (Milk Of Magnesia) 30 ml PO DAILY PRN PRN Reason: Constipation Stop: 03/15/19 01:24 Memantine (Namenda) 10 mg PO BID [facility] Stop: 03/15/19 08:59 Last Admin: 01/19/19 09:23 Dose: 10 mg Metoprolol Tartrate (Lopressor) 50 mg PO BID [facility] Stop: 03/17/19 07:59 Last Admin: 01/19/19 09:23 Dose: 50 mg Multivitamins/Vitamin C (Theragran) 1 tab PO DAILY [facility] Stop: 03/15/19 08:59 Last Admin: 01/19/19 09:23 Dose: 1 tab Nitroglycerin (Nitrostat) 0.4 mg SL Q5MIN PRN PRN Reason: Chest Pain Stop: 03/15/19 02:14 Risperidone (Risperdal) 1 mg PO Q12H [facility]; Protocol Stop: 03/19/19 08:59 Last Admin: 01/19/19 09:23 Dose: 1 mg Sodium Phosphate (Fleet Enema) 135 ml RC DAILY PRN PRN Reason: IF MOM INEFFECTIVE Stop: 03/15/19 01:24 Valproate Sodium (Depakene) 750 mg PO Q12H [facility]; Protocol Stop: 03/19/19 07:29 Last Admin: 01/19/19 06:50 Dose: Not Given Zolpidem Tartrate (Ambien) 5 mg PO HS PRN PRN Reason: Insomnia Stop: 03/15/19 01:17 Last Admin: 01/18/19 21:00 Dose: 5 mg Physical Exam: Patient remains very aggressive. General: other (Aggressive and agitated.) HEENT: NC/AT Neck: Supple Lungs: CTAB Cardiovascular: RRR, Normal S1 Abdomen: soft, non-tender Extremities: clear Neurological: no change Internal Medicine Assmt/Plan - Assessment Assessment: Htn. Agitated. Hx of CVA. Hypercholesterolemia. - Plan Plan: Continuation of care. Monitor Labs. Continue present meds as directed. Monitor vitals, continue B/P meds.. Monitor Diet/Nutritional support. Psych management per psych. Pain Management. Physical therapy. Occupational therapy. Safety precaution. Supportive care. Fall precaution, frequent nursing rounds, and as needed restraints to prevent fall. Will Monitor patient and continue present care management. Nutritional Asmnt/Malnutr-PDOC - Dietary Evaluation Malnutrition Findings (Please click <Entered> for more info): Nutritional Asmnt/Malnutrition Start: 01/18/19 13: 43 Text: Status: Complete Freq: Protocol: Document 01/18/19 13:44 VANESSA (Rec: 01/18/19 13:46 [email or web address]) Nutritional Asmnt/Malnutrition Patient General Information Nutritional Screening Moderate Risk Diagnosis Schizophrenia Pertinent Medical Hx/Surgical Hx HTN, CVA/TIA, Hypercholesterolemia Subjective Information Pt is a 68-year-old female from custodial admitted on 01/14 c/o agitation. Pt is currently eating an estimated 67% meals x 3 days per Meal/ Nutrition Activity Record. HT: 56 WT: 186 LB (84.54 kg) ADJ BW: 69.40 kg BMI: 30.02 (Overweight) GI: WNL, Soft, Non-Tender BM: 01/17 x 1 I/O: 480/Not Noted Skin: WNL, Intact Erik: 17 Diet Order: Soft, OCTAVIO Estimated Energy Needs: ( Overweight, ADJ BW) 9202-3629 kcals (20-25 kcals/ kg) 55-62 g Pro (0.8-0.9 g/kg) 2560-2417 ml (25-30 ml/kg) Pt is currently eating an estimated 67% meals x 3 days per Meal/Nutrition Activity Record. Dietary is currently providing an estimated 1932 kcals and 87 gm Pro. Per Pt PO intake, this is providing an estimated 1294 kcals and 58 gm Pro, to meet 93% kcal and 100 % Pro needs - Adequate. Current Diet Order/ Nutrition Support Soft, OCTAVIO Pertinent Medications Lipitor, Dulcolax (PRN), Colace, MOM (PRN), Theragran, Fleet Enema (PRN) Pertinent Labs 01/13: Potass 3.3, Cl 108, Glucose 122, Alb 3.3 Nutritional Hx/Data Height 1.68 m Height (Calculated Centimeters) 167.6 Current Weight (lbs) 84.368 kg Weight (Calculated Kilograms) 84.4 Weight (Calculated Grams) 78602.2 Warren Body Weight 59.3 kg % Warren Body Weight 143 Body Mass Index (BMI) 29.9 Weight Status Overweight GI Symptoms GI Symptoms None Last BM 01/17 x 1 Skin Integrity/Comment: WNL, Intact Erik: 17 Current %PO Fair (50-74%) Estimated Nutritional Goals BEE in Kcals: Adj wt of IBW Calories/Kcals/Kg 20-25 Kcals Calculated 9215-4506 Protein: Adj wt of IBW Protein g/k.8-0.9 Protein Calculated 55-62 Fluid: ml 1037-0749 ml (25-30 ml/kg) Nutritional Problem No current Nutrition Prob Problem N/A Etiology N/A Signs/Symptoms: N/A Malnutrition Related to Morbid Obesity Malnutrition related to morbid obesity No Intervention/Recommendation Comments 1. Continue Soft, OCTAVIO diet as ordered. Expected Outcomes/Goals Expected Outcomes/Goals 1. PO intake to continue to meet >75% of nutritional needs . 2. Monitor PO intake, wt, nutrition related labs and skin integrity. 3. F/U as low risk in 7 days, 01/25
--- NOTE | 2019-01-20 00:03 | Progress Notes ---
DATE: 01/19/2019 SUBJECTIVE: A 68-year-old female admitted on 01/14/2019, increased agitation, irritability, verbally abusive, very confused. On [id number], the patient remains confused, disoriented, impulsive, still unpredictable, concerns mostly for the safety of others, mostly withdrawn, depressed, angry ongoing concerns for underlying psychosis. Nursing staff notes some episodes of confusion and irritability. ASSESSMENT: The patient remains confused, irritable, ongoing concerns for acting out behaviors, still screaming at times. PLAN: We will continue to monitor. Medications were reviewed. [facility]# [id number]
[2019-01-20] MEDS: Dextromethorphan/Quinidine 20mg/10mg Cap PO SCH (09:03)
[2019-01-20] MEDS: Aspirin 81mg Chewable Tab PO SCH (09:03)
[2019-01-20] MEDS: risperiDONE 1 mg/mL 30 mL Bottle PO SCH ×2 (09:49→21:36)
[2019-01-20] MEDS: Multivitamin Tab PO SCH (09:49)
--- NOTE | 2019-01-20 15:18 | Internal Medicine Prog Note ---
Internal Medicine Subjective - Subjective Service Date: 01/20/19 Patient is:: awake, verbal, agitated Patient Complaints of:: other (History of CVA.) Per staff patient has:: no adverse event, no episodes of fall Internal Medicine Objective - Results Result Diagrams: 01/13/19 22:14 01/13/19 22:14 Recent Labs: Laboratory Last Values WBC 6.5 Th/cmm (4.8-10.8) 01/13/19 22:14 RBC 4.33 Mil/cmm (3.80-5.20) 01/13/19 22:14 Hgb 13.4 gm/dL (12-16) 01/13/19 22:14 Hct 40.3 % (41.0-60) L 01/13/19 22:14 MCV 93.0 fl (81-100) 01/13/19 22:14 MCH 30.9 pg (27.0-31.0) 01/13/19 22:14 MCHC Differential 33.2 pg (28.0-36.0) 01/13/19 22:14 RDW 12.2 % (11.5-20.0) 01/13/19 22:14 Plt Count 309 Th/cmm (150-400) 01/13/19 22:14 MPV 7.4 fl 01/13/19 22:14 Neutrophils % 62.7 % (40.0-80.0) 01/13/19 22:14 Lymphocytes % 27.6 % (20.0-50.0) 01/13/19 22:14 Monocytes % 7.2 % (2.0-10.0) 01/13/19 22:14 Eosinophils % 2.0 % (0.0-5.0) 01/13/19 22:14 Basophils % 0.5 % (0.0-2.0) 01/13/19 22:14 Sodium 139 mEq/L (136-145) 01/13/19 22:14 Potassium 3.3 mEq/L (3.5-5.1) L 01/13/19 22:14 Chloride 108 mEq/L (98-107) H 01/13/19 22:14 Carbon Dioxide 24.2 mEq/L (21.0-31.0) 01/13/19 22:14 Anion Gap 10.1 (7.0-16.0) 01/13/19 22:14 BUN 14 mg/dL (7-25) 01/13/19 22:14 Creatinine 0.8 mg/dL (0.6-1.2) 01/13/19 22:14 Est GFR ( Amer) > 60.0 ml/min (>90) 01/13/19 22:14 Est GFR (Non-Af Amer) > 60.0 ml/min 01/13/19 22:14 BUN/Creatinine Ratio 17.5 01/13/19 22:14 Glucose 122 mg/dL (70-105) H 01/13/19 22:14 Calcium 9.0 mg/dL (8.6-10.3) 01/13/19 22:14 Total Bilirubin 0.2 mg/dL (0.3-1.0) L 01/13/19 22:14 AST 10 U/L (13-39) L 01/13/19 22:14 ALT 10 U/L (7-52) 01/13/19 22:14 Alkaline Phosphatase 62 U/L (34-104) 01/13/19 22:14 Troponin I < 0.01 ng/mL (0.01-0.05) L 01/13/19 22:14 Total Protein 6.7 gm/dL (6.0-8.3) 01/13/19 22:14 Albumin 3.3 gm/dL (3.7-5.3) L 01/13/19 22:14 Globulin 3.4 gm/dL 01/13/19 22:14 Albumin/Globulin Ratio 1.0 (1.0-1.8) 01/13/19 22:14 Triglycerides 138 mg/dL (<150) 01/14/19 00:00 Cholesterol 186 mg/dL (<200) 01/14/19 00:00 LDL Cholesterol Direct 129 mg/dL (75-193) 01/14/19 00:00 HDL Cholesterol 34 mg/dL (23-92) 01/14/19 00:00 TSH 2.14 uIU/ml (0.34-5.60) 01/13/19 22:14 Salicylates < 25.0 mg/L (30.0-100.0) L 01/13/19 22:14 Acetaminophen < 10.0 ug/mL (10.0-30.0) L 01/13/19 22:14 Ethyl Alcohol < 10 mg/dL (0-10) 01/13/19 22:14 RPR NONREACTIVE (NONREACTIVE) 01/13/19 22:14 - Physical Exam Vitals and I&O: Vital Signs Temp 98.7 F 01/20/19 15:09 Pulse 76 01/20/19 15:09 Resp 18 01/20/19 15:09 BP 152/84 01/20/19 15:09 Pulse Ox 97 01/20/19 15:09 Intake & Output 01/19/19 01/20/19 01/20/19 18:59 06:59 18:59 Other: # Bowel Movements 1 Stool Characteristics Soft Active Medications: Current Medications Acetaminophen (Tylenol) 650 mg PO Q6H PRN PRN Reason: Moderate pain (4-6/10) Stop: 03/15/19 01:29 Aspirin (Aspirin Chewable) 81 mg PO DAILY [facility] Stop: 03/15/19 08:59 Last Admin: 01/20/19 09:03 Dose: 81 mg Atorvastatin Calcium (Lipitor) 40 mg PO HS [facility] Stop: 03/15/19 20:59 Last Admin: 01/19/19 21:20 Dose: Not Given Bisacodyl (Dulcolax 10 Mg Supp) 10 mg RC DAILY PRN PRN Reason: Constipation Stop: 03/15/19 01:24 Dextromethorphan/Quinidine (Nuedexta 20mg-10mg) 1 cap PO DAILY [facility] Stop: 03/15/19 16:59 Last Admin: 01/20/19 09:03 Dose: Not Given Docusate Sodium (Colace) 250 mg PO BID [facility] Stop: 03/15/19 08:59 Last Admin: 01/20/19 09:03 Dose: Not Given Donepezil HCl (Aricept) 10 mg PO HS [facility] Stop: 03/15/19 20:59 Last Admin: 01/19/19 21:20 Dose: Not Given Haloperidol Decanoate (Haldol Dec) 25 mg IM QMONTH [facility]; Protocol Stop: 03/21/19 08:59 Last Admin: 01/20/19 09:11 Dose: 25 mg Hydralazine HCl (Apresoline) 50 mg PO TID [facility] Stop: 03/15/19 08:59 Last Admin: 01/20/19 14:29 Dose: 50 mg Lorazepam (Ativan) 0.5 mg PO Q4HR PRN; Protocol PRN Reason: Anxiety Stop: 02/13/19 01:17 Last Admin: 01/18/19 21:00 Dose: 0.5 mg Magnesium Hydroxide (Milk Of Magnesia) 30 ml PO DAILY PRN PRN Reason: Constipation Stop: 03/15/19 01:24 Memantine (Namenda) 10 mg PO BID [facility] Stop: 03/15/19 08:59 Last Admin: 01/20/19 09:04 Dose: Not Given Metoprolol Tartrate (Lopressor) 50 mg PO BID [facility] Stop: 03/17/19 07:59 Last Admin: 01/20/19 09:04 Dose: 50 mg Multivitamins/Vitamin C (Theragran) 1 tab PO DAILY [facility] Stop: 03/15/19 08:59 Last Admin: 01/20/19 09:49 Dose: Not Given Nitroglycerin (Nitrostat) 0.4 mg SL Q5MIN PRN PRN Reason: Chest Pain Stop: 03/15/19 02:14 Risperidone (Risperdal) 1 mg PO Q12H [facility]; Protocol Stop: 03/19/19 08:59 Last Admin: 01/20/19 09:49 Dose: Not Given Sodium Phosphate (Fleet Enema) 135 ml RC DAILY PRN PRN Reason: IF MOM INEFFECTIVE Stop: 03/15/19 01:24 Valproate Sodium (Depakene) 750 mg PO Q12H [facility]; Protocol Stop: 03/19/19 07:29 Last Admin: 01/20/19 06:47 Dose: Not Given Zolpidem Tartrate (Ambien) 5 mg PO HS PRN PRN Reason: Insomnia Stop: 03/15/19 01:17 Last Admin: 01/18/19 21:00 Dose: 5 mg General: other (Aggressive and agitated.) HEENT: NC/AT Neck: Supple Lungs: CTAB Cardiovascular: RRR, Normal S1 Abdomen: soft, non-tender Extremities: clear Neurological: no change Internal Medicine Assmt/Plan - Assessment Assessment: Htn. Agitated. Hx of CVA. Hypercholesterolemia. - Plan Plan: Continuation of care. Monitor Labs. Continue present meds as directed. Monitor vitals, continue B/P meds.. Monitor Diet/Nutritional support. Psych management per psych. Pain Management. Physical therapy. Occupational therapy. Safety precaution. Supportive care. Fall precaution, frequent nursing rounds, and as needed restraints to prevent fall. Will Monitor patient and continue present care management. Nutritional Asmnt/Malnutr-PDOC - Dietary Evaluation Malnutrition Findings (Please click <Entered> for more info): Nutritional Asmnt/Malnutrition Start: 01/18/19 13: 43 Text: Status: Complete Freq: Protocol: Document 01/18/19 13:44 VANESSA (Rec: 01/18/19 13:46 [email or web address]) Nutritional Asmnt/Malnutrition Patient General Information Nutritional Screening Moderate Risk Diagnosis Schizophrenia Pertinent Medical Hx/Surgical Hx HTN, CVA/TIA, Hypercholesterolemia Subjective Information Pt is a 68-year-old female from [facility] admitted [facility] 01/14 c/o agitation. Pt is currently eating an estimated 67% meals x 3 days per Meal/ Nutrition Activity Record. HT: 56 WT: 186 LB (84.54 kg) ADJ BW: 69.40 kg BMI: 30.02 (Overweight) GI: WNL, Soft, Non-Tender BM: 01/17 x 1 I/O: 480/Not Noted Skin: WNL, Intact Erik: 17 Diet Order: Soft, OCTAVIO Estimated Energy Needs: ( Overweight, ADJ BW) 8591-9426 kcals (20-25 kcals/ kg) 55-62 g Pro (0.8-0.9 g/kg) 8499-6519 ml (25-30 ml/kg) Pt is currently eating an estimated 67% meals x 3 days per Meal/Nutrition Activity Record. Dietary is currently providing an estimated 1932 kcals and 87 gm Pro. Per Pt PO intake, this is providing an estimated 1294 kcals and 58 gm Pro, to meet 93% kcal and 100 % Pro needs - Adequate. Current Diet Order/ Nutrition Support Soft, OCTAVIO Pertinent Medications Lipitor, Dulcolax (PRN), Colace, MOM (PRN), Theragran, Fleet Enema (PRN) Pertinent Labs 01/13: Potass 3.3, Cl 108, Glucose 122, Alb 3.3 Nutritional Hx/Data Height 5 ft 6 in Height (Calculated Centimeters) 167.6 Current Weight (lbs) 186 lb Weight (Calculated Kilograms) 84.4 Weight (Calculated Grams) 29098.2 [place] Body Weight 59.3 kg % [place] Body Weight 143 Body Mass Index (BMI) 29.9 Weight Status Overweight GI Symptoms GI Symptoms None Last BM 01/17 x 1 Skin Integrity/Comment: WNL, Intact Erik: 17 Current %PO Fair (50-74%) Estimated Nutritional Goals BEE in Kcals: Adj wt of IBW Calories/Kcals/Kg 20-25 Kcals Calculated 8525-5373 Protein: Adj wt of IBW Protein g/k.8-0.9 Protein Calculated 55-62 Fluid: ml 7677-7264 ml (25-30 ml/kg) Nutritional Problem No current Nutrition Prob Problem N/A Etiology N/A Signs/Symptoms: N/A Malnutrition Related to Morbid Obesity Malnutrition related to morbid obesity No Intervention/Recommendation Comments 1. Continue Soft, OCTAVIO diet as ordered. Expected Outcomes/Goals Expected Outcomes/Goals 1. PO intake to continue to meet >75% of nutritional needs . 2. Monitor PO intake, wt, nutrition related labs and skin integrity. 3. F/U as low risk in 7 days, 01/25
[2019-01-21] MEDS: Dextromethorphan/Quinidine 20mg/10mg Cap PO SCH (08:35)
[2019-01-21] MEDS: Multivitamin Tab PO SCH (08:35)
[2019-01-21] MEDS: Aspirin 81mg Chewable Tab PO SCH (08:35)
[2019-01-21] MEDS: risperiDONE 1 mg/mL 30 mL Bottle PO SCH ×2 (09:03→21:04)
--- NOTE | 2019-01-21 13:59 | Internal Medicine Prog Note ---
Internal Medicine Subjective - Subjective Service Date: 01/21/19 Patient is:: awake, verbal, agitated Patient Complaints of:: other (History of CVA.) Per staff patient has:: no adverse event, no episodes of fall Internal Medicine Objective - Results Result Diagrams: 01/13/19 22:14 01/13/19 22:14 Recent Labs: Laboratory Last Values WBC 6.5 Th/cmm (4.8-10.8) 01/13/19 22:14 RBC 4.33 Mil/cmm (3.80-5.20) 01/13/19 22:14 Hgb 13.4 gm/dL (12-16) 01/13/19 22:14 Hct 40.3 % (41.0-60) L 01/13/19 22:14 MCV 93.0 fl (81-100) 01/13/19 22:14 MCH 30.9 pg (27.0-31.0) 01/13/19 22:14 MCHC Differential 33.2 pg (28.0-36.0) 01/13/19 22:14 RDW 12.2 % (11.5-20.0) 01/13/19 22:14 Plt Count 309 Th/cmm (150-400) 01/13/19 22:14 MPV 7.4 fl 01/13/19 22:14 Neutrophils % 62.7 % (40.0-80.0) 01/13/19 22:14 Lymphocytes % 27.6 % (20.0-50.0) 01/13/19 22:14 Monocytes % 7.2 % (2.0-10.0) 01/13/19 22:14 Eosinophils % 2.0 % (0.0-5.0) 01/13/19 22:14 Basophils % 0.5 % (0.0-2.0) 01/13/19 22:14 Sodium 139 mEq/L (136-145) 01/13/19 22:14 Potassium 3.3 mEq/L (3.5-5.1) L 01/13/19 22:14 Chloride 108 mEq/L (98-107) H 01/13/19 22:14 Carbon Dioxide 24.2 mEq/L (21.0-31.0) 01/13/19 22:14 Anion Gap 10.1 (7.0-16.0) 01/13/19 22:14 BUN 14 mg/dL (7-25) 01/13/19 22:14 Creatinine 0.8 mg/dL (0.6-1.2) 01/13/19 22:14 Est GFR ( Amer) > 60.0 ml/min (>90) 01/13/19 22:14 Est GFR (Non-Af Amer) > 60.0 ml/min 01/13/19 22:14 BUN/Creatinine Ratio 17.5 01/13/19 22:14 Glucose 122 mg/dL (70-105) H 01/13/19 22:14 Calcium 9.0 mg/dL (8.6-10.3) 01/13/19 22:14 Total Bilirubin 0.2 mg/dL (0.3-1.0) L 01/13/19 22:14 AST 10 U/L (13-39) L 01/13/19 22:14 ALT 10 U/L (7-52) 01/13/19 22:14 Alkaline Phosphatase 62 U/L (34-104) 01/13/19 22:14 Troponin I < 0.01 ng/mL (0.01-0.05) L 01/13/19 22:14 Total Protein 6.7 gm/dL (6.0-8.3) 01/13/19 22:14 Albumin 3.3 gm/dL (3.7-5.3) L 01/13/19 22:14 Globulin 3.4 gm/dL 01/13/19 22:14 Albumin/Globulin Ratio 1.0 (1.0-1.8) 01/13/19 22:14 Triglycerides 138 mg/dL (<150) 01/14/19 00:00 Cholesterol 186 mg/dL (<200) 01/14/19 00:00 LDL Cholesterol Direct 129 mg/dL (75-193) 01/14/19 00:00 HDL Cholesterol 34 mg/dL (23-92) 01/14/19 00:00 TSH 2.14 uIU/ml (0.34-5.60) 01/13/19 22:14 Salicylates < 25.0 mg/L (30.0-100.0) L 01/13/19 22:14 Acetaminophen < 10.0 ug/mL (10.0-30.0) L 01/13/19 22:14 Ethyl Alcohol < 10 mg/dL (0-10) 01/13/19 22:14 RPR NONREACTIVE (NONREACTIVE) 01/13/19 22:14 - Physical Exam Vitals and I&O: Vital Signs Temp 97 F 01/21/19 06:45 Pulse 73 01/21/19 08:36 Resp 18 01/21/19 08:00 BP 137/63 01/21/19 08:36 Pulse Ox 97 01/21/19 06:45 Intake & Output 01/20/19 01/21/19 01/21/19 18:59 06:59 18:59 Intake Total 120 Balance 120 Intake: Oral 120 Other: # Voids 1 # Bowel Movements 1 0 Stool Characteristics Soft Active Medications: Current Medications Acetaminophen (Tylenol) 650 mg PO Q6H PRN PRN Reason: Moderate pain (4-6/10) Stop: 03/15/19 01:29 Aspirin (Aspirin Chewable) 81 mg PO DAILY [facility] Stop: 03/15/19 08:59 Last Admin: 01/21/19 08:35 Dose: Not Given Atorvastatin Calcium (Lipitor) 40 mg PO HS [facility] Stop: 03/15/19 20:59 Last Admin: 01/20/19 21:32 Dose: 40 mg Bisacodyl (Dulcolax 10 Mg Supp) 10 mg RC DAILY PRN PRN Reason: Constipation Stop: 03/15/19 01:24 Dextromethorphan/Quinidine (Nuedexta 20mg-10mg) 1 cap PO DAILY [facility] Stop: 03/15/19 16:59 Last Admin: 01/21/19 08:35 Dose: Not Given Docusate Sodium (Colace) 250 mg PO BID [facility] Stop: 03/15/19 08:59 Last Admin: 01/21/19 08:35 Dose: Not Given Donepezil HCl (Aricept) 10 mg PO HS [facility] Stop: 03/15/19 20:59 Last Admin: 01/20/19 21:34 Dose: 10 mg Haloperidol Decanoate (Haldol Dec) 25 mg IM QMONTH [facility]; Protocol Stop: 03/21/19 08:59 Last Admin: 01/20/19 09:11 Dose: 25 mg Hydralazine HCl (Apresoline) 50 mg PO TID [facility] Stop: 03/15/19 08:59 Last Admin: 01/21/19 08:36 Dose: Not Given Lorazepam (Ativan) 0.5 mg PO Q4HR PRN; Protocol PRN Reason: Anxiety Stop: 02/13/19 01:17 Last Admin: 01/18/19 21:00 Dose: 0.5 mg Magnesium Hydroxide (Milk Of Magnesia) 30 ml PO DAILY PRN PRN Reason: Constipation Stop: 03/15/19 01:24 Memantine (Namenda) 10 mg PO BID [facility] Stop: 03/15/19 08:59 Last Admin: 01/21/19 08:35 Dose: Not Given Metoprolol Tartrate (Lopressor) 50 mg PO BID [facility] Stop: 03/17/19 07:59 Last Admin: 01/21/19 08:35 Dose: Not Given Multivitamins/Vitamin C (Theragran) 1 tab PO DAILY [facility] Stop: 03/15/19 08:59 Last Admin: 01/21/19 08:35 Dose: Not Given Nitroglycerin (Nitrostat) 0.4 mg SL Q5MIN PRN PRN Reason: Chest Pain Stop: 03/15/19 02:14 Risperidone (Risperdal) 1 mg PO Q12H [facility]; Protocol Stop: 03/19/19 08:59 Last Admin: 01/21/19 09:03 Dose: Not Given Sodium Phosphate (Fleet Enema) 135 ml RC DAILY PRN PRN Reason: IF MOM INEFFECTIVE Stop: 03/15/19 01:24 Valproate Sodium (Depakene) 750 mg PO Q12H [facility]; Protocol Stop: 03/19/19 07:29 Last Admin: 01/21/19 07:03 Dose: Not Given Zolpidem Tartrate (Ambien) 5 mg PO HS PRN PRN Reason: Insomnia Stop: 03/15/19 01:17 Last Admin: 01/18/19 21:00 Dose: 5 mg General: other (Aggressive and agitated.) HEENT: NC/AT Neck: Supple Lungs: CTAB Cardiovascular: RRR, Normal S1 Abdomen: soft, non-tender Extremities: clear Neurological: no change Internal Medicine Assmt/Plan - Assessment Assessment: Htn. Agitated. Hx of CVA. Hypercholesterolemia. - Plan Plan: Continuation of care. Monitor Labs. Continue present meds as directed. Monitor vitals, continue B/P meds.. Monitor Diet/Nutritional support. Psych management per psych. Pain Management. Physical therapy. Occupational therapy. Safety precaution. Supportive care. Fall precaution, frequent nursing rounds, and as needed restraints to prevent fall. Will Monitor patient and continue present care management. Nutritional Asmnt/Malnutr-PDOC - Dietary Evaluation Malnutrition Findings (Please click <Entered> for more info): Nutritional Asmnt/Malnutrition Start: 01/18/19 13: 43 Text: Status: Complete Freq: Protocol: Document 01/18/19 13:44 ALESHAMICHELL (Rec: 01/18/19 13:46 ALESHAMICHELL [email or web address]) Nutritional Asmnt/Malnutrition Patient General Information Nutritional Screening Moderate Risk Diagnosis Schizophrenia Pertinent Medical Hx/Surgical Hx HTN, CVA/TIA, Hypercholesterolemia Subjective Information [facility] 68[facility]/o agitation. Pt is currently eating an estimated 67% meals x 3 days per Meal/ Nutrition Activity Record. HT: 56 WT: 186 LB (84.54 kg) ADJ BW: 69.40 kg BMI: 30.02 (Overweight) GI: WNL, Soft, Non-Tender BM: 01/17 x 1 I/O: 480/Not Noted Skin: WNL, Intact Erik: 17 Diet Order: Soft, OCTAVIO Estimated Energy Needs: ( Overweight, ADJ BW) 5787-6152 kcals (20-25 kcals/ kg) 55-62 g Pro (0.8-0.9 g/kg) 5691-6285 ml (25-30 ml/kg) Pt is currently eating an estimated 67% meals x 3 days per Meal/Nutrition Activity Record. Dietary is currently providing an estimated 1932 kcals and 87 gm Pro. Per Pt PO intake, this is providing an estimated 1294 kcals and 58 gm Pro, to meet 93% kcal and 100 % Pro needs - Adequate. Current Diet Order/ Nutrition Support Soft, OCTAVIO Pertinent Medications Lipitor, Dulcolax (PRN), Colace, MOM (PRN), Theragran, Fleet Enema (PRN) Pertinent Labs 01/13: Potass 3.3, Cl 108, Glucose 122, Alb 3.3 Nutritional Hx/Data Height 5 ft 6 in Height (Calculated Centimeters) 167.6 Current Weight (lbs) 186 lb Weight (Calculated Kilograms) 84.4 Weight (Calculated Grams) 29397.2 [place] Body Weight 59.3 kg % [place] Body Weight 143 Body Mass Index (BMI) 29.9 Weight Status Overweight GI Symptoms GI Symptoms None Last BM 01/17 x 1 Skin Integrity/Comment: WNL, Intact Erik: 17 Current %PO Fair (50-74%) Estimated Nutritional Goals BEE in Kcals: Adj wt of IBW Calories/Kcals/Kg 20-25 Kcals Calculated 2906-7317 Protein: Adj wt of IBW Protein g/k.8-0.9 Protein Calculated 55-62 Fluid: ml 2813-8886 ml (25-30 ml/kg) Nutritional Problem No current Nutrition Prob Problem N/A Etiology N/A Signs/Symptoms: N/A Malnutrition Related to Morbid Obesity Malnutrition related to morbid obesity No Intervention/Recommendation Comments 1. Continue Soft, OCTAVIO diet as ordered. Expected Outcomes/Goals Expected Outcomes/Goals 1. PO intake to continue to meet >75% of nutritional needs . 2. Monitor PO intake, wt, nutrition related labs and skin integrity. 3. F/U as low risk in 7 days, 01/25
--- NOTE | 2019-01-22 01:53 | Progress Notes ---
DATE: 01/21/2019 SUBJECTIVE: Chart was reviewed and the patient interviewed. Also discussed the patient's condition with the staff and reviewed records and labs. The patient is still actively hallucinating, and she is still actively responding to stimuli. The patient also is still laughing inappropriately and loudly. She also is still talking to herself and talking to imaginary people. She also is still uncooperative with the staff and refusing care and also refusing medications. ASSESSMENT: The patient is still psychotic. TREATMENT PLAN: Continue to monitor behavior and condition closely. Also, the patient did take Haldol Decanoate injection yesterday for better compliance. We will continue current treatment and continue to follow up. [facility]# [id number]
--- NOTE | 2019-01-22 02:16 | Progress Notes ---
DATE: 01/20/2019 SUBJECTIVE: Chart was reviewed and the patient interviewed. Also discussed the patient's condition with the staff and reviewed records and labs. The patient is laughing hysterically in the middle of the night and woke up her roommate and other people on the unit. Also still has difficulty redirecting her and she is still anxious and in irritable mood. The patient also is still loud and she is still restless. She also is still having mood swings. Otherwise, the patient seems to be slightly less agitated, but she is still actively hallucinating. The patient is refusing to take any psychotropic medications or any medications at this time and for the last couple of days. The patient did take Haldol emergency dose before with no allergic reaction. ASSESSMENT: The patient is still psychotic and agitated. TREATMENT PLAN: We will monitor her behavior closely. Also, encouraged the patient to take her medications orally, but that did not work before. We will add Haldol Decanoate injection 25 mg per mL IM every month, hopefully that will help the patient to comply with taking her medications. At the same time, we will continue close observation of her condition and we will continue to follow up. [facility]# [id number]
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
--- NOTE | 2019-01-22 08:04 | Progress Notes ---
DATE: 01/22/2019 SUBJECTIVE: Chart was reviewed and the patient interviewed. Also discussed the patient's condition with the staff and reviewed records and labs. The patient is still agitated and is still in irritable and angry mood. The patient also is still restless and is still paranoid. During interview, the patient responded by saying "scared." She also is having difficulty with her mood and has episodes of yelling and screaming for no reason. The patient also is uncooperative with the staff and still refusing to take medications, but she was agreeable to take Haldol injection. She is also complaining of itching for the last several days. Otherwise, the patient still needs close monitoring. ASSESSMENT: The patient is still restless and is still agitated. TREATMENT PLAN: We will continue to monitor her behavior and her condition closely. Also, we will continue adjusting psychotropic medications and workup on her compliance with taking her medications, but that can be done as an outpatient in [facility]. At the same time, we will discharge the patient and follow up in [facility]. JOB# [id number]
[2019-01-22] MEDS: Aspirin 81mg Chewable Tab PO SCH (09:23)
[2019-01-22] MEDS: Dextromethorphan/Quinidine 20mg/10mg Cap PO SCH (09:23)
[2019-01-22] MEDS: risperiDONE 1 mg/mL 30 mL Bottle PO SCH (09:24)
[2019-01-22] MEDS: Multivitamin Tab PO SCH (09:24)
--- NOTE | 2019-01-22 13:55 | Internal Medicine Prog Note ---
Internal Medicine Subjective - Subjective Patient is:: awake, verbal, other (pt. mood improving) Patient Complaints of:: other (History of CVA.) Per staff patient has:: no adverse event, no episodes of fall Internal Medicine Objective - Results Result Diagrams: 01/13/19 22:14 01/13/19 22:14 Recent Labs: Laboratory Last Values WBC 6.5 Th/cmm (4.8-10.8) 01/13/19 22:14 RBC 4.33 Mil/cmm (3.80-5.20) 01/13/19 22:14 Hgb 13.4 gm/dL (12-16) 01/13/19 22:14 Hct 40.3 % (41.0-60) L 01/13/19 22:14 MCV 93.0 fl (81-100) 01/13/19 22:14 MCH 30.9 pg (27.0-31.0) 01/13/19 22:14 MCHC Differential 33.2 pg (28.0-36.0) 01/13/19 22:14 RDW 12.2 % (11.5-20.0) 01/13/19 22:14 Plt Count 309 Th/cmm (150-400) 01/13/19 22:14 MPV 7.4 fl 01/13/19 22:14 Neutrophils % 62.7 % (40.0-80.0) 01/13/19 22:14 Lymphocytes % 27.6 % (20.0-50.0) 01/13/19 22:14 Monocytes % 7.2 % (2.0-10.0) 01/13/19 22:14 Eosinophils % 2.0 % (0.0-5.0) 01/13/19 22:14 Basophils % 0.5 % (0.0-2.0) 01/13/19 22:14 Sodium 139 mEq/L (136-145) 01/13/19 22:14 Potassium 3.3 mEq/L (3.5-5.1) L 01/13/19 22:14 Chloride 108 mEq/L (98-107) H 01/13/19 22:14 Carbon Dioxide 24.2 mEq/L (21.0-31.0) 01/13/19 22:14 Anion Gap 10.1 (7.0-16.0) 01/13/19 22:14 BUN 14 mg/dL (7-25) 01/13/19 22:14 Creatinine 0.8 mg/dL (0.6-1.2) 01/13/19 22:14 Est GFR ( Amer) > 60.0 ml/min (>90) 01/13/19 22:14 Est GFR (Non-Af Amer) > 60.0 ml/min 01/13/19 22:14 BUN/Creatinine Ratio 17.5 01/13/19 22:14 Glucose 122 mg/dL (70-105) H 01/13/19 22:14 Calcium 9.0 mg/dL (8.6-10.3) 01/13/19 22:14 Total Bilirubin 0.2 mg/dL (0.3-1.0) L 01/13/19 22:14 AST 10 U/L (13-39) L 01/13/19 22:14 ALT 10 U/L (7-52) 01/13/19 22:14 Alkaline Phosphatase 62 U/L (34-104) 01/13/19 22:14 Troponin I < 0.01 ng/mL (0.01-0.05) L 01/13/19 22:14 Total Protein 6.7 gm/dL (6.0-8.3) 01/13/19 22:14 Albumin 3.3 gm/dL (3.7-5.3) L 01/13/19 22:14 Globulin 3.4 gm/dL 01/13/19 22:14 Albumin/Globulin Ratio 1.0 (1.0-1.8) 01/13/19 22:14 Triglycerides 138 mg/dL (<150) 01/14/19 00:00 Cholesterol 186 mg/dL (<200) 01/14/19 00:00 LDL Cholesterol Direct 129 mg/dL (75-193) 01/14/19 00:00 HDL Cholesterol 34 mg/dL (23-92) 01/14/19 00:00 TSH 2.14 uIU/ml (0.34-5.60) 01/13/19 22:14 Salicylates < 25.0 mg/L (30.0-100.0) L 01/13/19 22:14 Acetaminophen < 10.0 ug/mL (10.0-30.0) L 01/13/19 22:14 Ethyl Alcohol < 10 mg/dL (0-10) 01/13/19 22:14 RPR NONREACTIVE (NONREACTIVE) 01/13/19 22:14 - Physical Exam Vitals and I&O: Vital Signs Temp 98 F 01/22/19 06:44 Pulse 93 01/22/19 09:33 Resp 19 01/22/19 08:00 BP 156/87 01/22/19 09:33 Pulse Ox 99 01/22/19 06:44 Intake & Output 01/21/19 01/22/19 01/22/19 18:59 06:59 18:59 Intake Total 960 120 Balance 960 120 Intake: Oral 960 120 Other: # Voids 4 3 # Bowel Movements 1 Stool Characteristics Soft Soft Active Medications: Current Medications Acetaminophen (Tylenol) 650 mg PO Q6H PRN PRN Reason: Moderate pain (4-6/10) Stop: 03/15/19 01:29 Aspirin (Aspirin Chewable) 81 mg PO DAILY [facility] Stop: 03/15/19 08:59 Last Admin: 01/22/19 09:23 Dose: Not Given Atorvastatin Calcium (Lipitor) 40 mg PO HS [facility] Stop: 03/15/19 20:59 Last Admin: 01/21/19 21:12 Dose: Not Given Bisacodyl (Dulcolax 10 Mg Supp) 10 mg RC DAILY PRN PRN Reason: Constipation Stop: 03/15/19 01:24 Dextromethorphan/Quinidine (Nuedexta 20mg-10mg) 1 cap PO DAILY [facility] Stop: 03/15/19 16:59 Last Admin: 01/22/19 09:23 Dose: Not Given Docusate Sodium (Colace) 250 mg PO BID [facility] Stop: 03/15/19 08:59 Last Admin: 01/22/19 09:23 Dose: Not Given Donepezil HCl (Aricept) 10 mg PO HS [facility] Stop: 03/15/19 20:59 Last Admin: 01/21/19 20:38 Dose: 10 mg Haloperidol Decanoate (Haldol Dec) 25 mg IM QMONTH [facility]; Protocol Stop: 03/21/19 08:59 Last Admin: 01/20/19 09:11 Dose: 25 mg Hydralazine HCl (Apresoline) 50 mg PO TID [facility] Stop: 03/15/19 08:59 Last Admin: 01/22/19 09:33 Dose: 50 mg Lorazepam (Ativan) 0.5 mg PO Q4HR PRN; Protocol PRN Reason: Anxiety Stop: 02/13/19 01:17 Last Admin: 01/18/19 21:00 Dose: 0.5 mg Magnesium Hydroxide (Milk Of Magnesia) 30 ml PO DAILY PRN PRN Reason: Constipation Stop: 03/15/19 01:24 Memantine (Namenda) 10 mg PO BID [facility] Stop: 03/15/19 08:59 Last Admin: 01/22/19 09:24 Dose: Not Given Metoprolol Tartrate (Lopressor) 50 mg PO BID [facility] Stop: 03/17/19 07:59 Last Admin: 01/22/19 09:33 Dose: 50 mg Multivitamins/Vitamin C (Theragran) 1 tab PO DAILY [facility] Stop: 03/15/19 08:59 Last Admin: 01/22/19 09:24 Dose: Not Given Nitroglycerin (Nitrostat) 0.4 mg SL Q5MIN PRN PRN Reason: Chest Pain Stop: 03/15/19 02:14 Risperidone (Risperdal) 1 mg PO Q12H [facility]; Protocol Stop: 03/19/19 08:59 Last Admin: 01/22/19 09:24 Dose: Not Given Sodium Phosphate (Fleet Enema) 135 ml RC DAILY PRN PRN Reason: IF MOM INEFFECTIVE Stop: 03/15/19 01:24 Valproate Sodium (Depakene) 750 mg PO Q12H [facility]; Protocol Stop: 03/19/19 07:29 Last Admin: 01/22/19 06:46 Dose: Not Given Zolpidem Tartrate (Ambien) 5 mg PO HS PRN PRN Reason: Insomnia Stop: 03/15/19 01:17 Last Admin: 01/18/19 21:00 Dose: 5 mg Physical Exam: Patient remains very aggressive. General: other (Aggressive and agitated.) HEENT: NC/AT Neck: Supple Lungs: CTAB Cardiovascular: RRR, Normal S1 Abdomen: soft, non-tender Extremities: clear Neurological: no change Internal Medicine Assmt/Plan - Assessment Assessment: Htn. Agitated. Hx of CVA. Hypercholesterolemia. - Plan Plan: Discharge planning to [facility] Nutritional Asmnt/Malnutr-PDOC - Dietary Evaluation Malnutrition Findings (Please click <Entered> for more info): Nutritional Asmnt/Malnutrition Start: 01/18/19 13: 43 Text: Status: Complete Freq: Protocol: Document 01/18/19 13:44 VANESSA (Rec: 01/18/19 13:46 [email or web address]) Nutritional Asmnt/Malnutrition Patient General Information Nutritional Screening Moderate Risk Diagnosis Schizophrenia Pertinent Medical Hx/Surgical Hx HTN, CVA/TIA, Hypercholesterolemia Subjective Information Pt is a 68-year-old female from longterm admitted on 01/14 c/o agitation. Pt is currently eating an estimated 67% meals x 3 days per Meal/ Nutrition Activity Record. HT: 56 WT: 186 LB (84.54 kg) ADJ BW: 69.40 kg BMI: 30.02 (Overweight) GI: WNL, Soft, Non-Tender BM: 01/17 x 1 I/O: 480/Not Noted Skin: WNL, Intact Erik: 17 Diet Order: Soft, OCTAVIO Estimated Energy Needs: ( Overweight, ADJ BW) 1216-1510 kcals (20-25 kcals/ kg) 55-62 g Pro (0.8-0.9 g/kg) 2498-9159 ml (25-30 ml/kg) Pt is currently eating an estimated 67% meals x 3 days per Meal/Nutrition Activity Record. Dietary is currently providing an estimated 1932 kcals and 87 gm Pro. Per Pt PO intake, this is providing an estimated 1294 kcals and 58 gm Pro, to meet 93% kcal and 100 % Pro needs - Adequate. Current Diet Order/ Nutrition Support Soft, OCTAVIO Pertinent Medications Lipitor, Dulcolax (PRN), Colace, MOM (PRN), Theragran, Fleet Enema (PRN) Pertinent Labs 01/13: Potass 3.3, Cl 108, Glucose 122, Alb 3.3 Nutritional Hx/Data Height 1.68 m Height (Calculated Centimeters) 167.6 Current Weight (lbs) 84.368 kg Weight (Calculated Kilograms) 84.4 Weight (Calculated Grams) 29720.2 [place] Body Weight 59.3 kg % [place] Body Weight 143 Body Mass Index (BMI) 29.9 Weight Status Overweight GI Symptoms GI Symptoms None Last BM 01/17 x 1 Skin Integrity/Comment: WNL, Intact Erik: 17 Current %PO Fair (50-74%) Estimated Nutritional Goals BEE in Kcals: Adj wt of IBW Calories/Kcals/Kg 20-25 Kcals Calculated 1845-8525 Protein: Adj wt of IBW Protein g/k.8-0.9 Protein Calculated 55-62 Fluid: ml 5791-5926 ml (25-30 ml/kg) Nutritional Problem No current Nutrition Prob Problem N/A Etiology N/A Signs/Symptoms: N/A Malnutrition Related to Morbid Obesity Malnutrition related to morbid obesity No Intervention/Recommendation Comments 1. Continue Soft, OCTAVIO diet as ordered. Expected Outcomes/Goals Expected Outcomes/Goals 1. PO intake to continue to meet >75% of nutritional needs . 2. Monitor PO intake, wt, nutrition related labs and skin integrity. 3. F/U as low risk in 7 days, 01/25
== END 2019-01-22 15:20 | DRG 885 ==
LOC: ER 21:47 → GERO2 01-14 00:25 → GERO 01-20 18:06
PROVIDERS: ADMIT Psychiatry & Neurology Psychiatry; ATTEND Psychiatry & Neurology Psychiatry
DX: F20.9 Schizophrenia, unspecified (principal); F03.91 Unspecified dementia, unspecified severity, with behavioral disturbance; I10 Essential (primary) hypertension; E78.00 Pure hypercholesterolemia, unspecified; Z86.73 Personal history of transient ischemic attack (TIA), and cerebral infarction without residual deficits
CPT/HCPCS: 36415-UA; 80053-TC; 80061-TC; 80320-TC; 80329-TC; 83036-90; 84443-TC; 84484-TC; 85025-TC; 86592-TC; 93005; J1631; Z7610